=== PATIENT | male | born 1960 | race Caucasian/White ===

== ENCOUNTER → 2016-05-09 | Outpatient (CLI) | payer BC ==
[2016-05-09 12:23] LABS: BASO % 0.4 %; BASO ABS # 0.02 K/uL (0-0.2); COMPLETE YES; EOS % 2.2 %; HEMATOCRIT 43.1 % (42-52); IG% 0.6 %; LYMPH ABS # 0.74 K/uL (1.2-3.4); MEAN CELL VOLUME 86.2 fL (80-100); MEAN CORPUSCULAR HEMOGLOBIN 30.8 pg (25-34); MEAN CORPUSCULAR HGB CONC 35.7 g/dl (32-36); MEAN PLATELET VOLUME 9.4 fL (7.4-10.4); MONO % 10.1 %; NEUT % 71.7 %; PLATELET COUNT 164 K/uL (130-400); WHITE BLOOD COUNT 4.93 K/uL (4.8-10.8)
[2016-05-09 12:51] LABS: ALT/SGPT 42 U/L (12-78); BLOOD UREA NITROGEN 17 mg/dl (7-18); BUN/CREATININE RATIO 17.3 (10-20); CALCIUM 8.6 mg/dl (8.5-10.1); CARBON DIOXIDE 24 mmol/L (21-32); CHLORIDE 107 mmol/L (98-107); CHOLESTEROL 227 mg/dl (0-200); GLUCOSE 101 mg/dl (70-99); POTASSIUM 4.2 mmol/L (3.5-5.1); SODIUM 140 mmol/L (136-145); TRIGLYCERIDES 306 mg/dl (0-150); VERY LOW DENSITY LIPOPROT CALC 61 mg/dl
[2016-05-09 13:01] LABS: ALB/GLOB RATIO 1.4 (0.9-2); ALKALINE PHOSPHATASE 70 U/L (45-117); AST/SGOT 27 U/L (15-37); CHOLESTEROL/HDL RATIO 5.8; HDL CHOLESTEROL 39 mg/dl; LDL CHOLESTEROL CALCULATED 127 mg/dl; PROSTATE SPECIFIC ANTIGEN 0.914 ng/ml (0.000-4.000)
[2016-05-09 13:02] LABS: ESTIMATED AVERAGE GLUCOSE 94 mg/dl; HA1C FLAG Normal (Normal)
== END | disposition home or self-care (01) ==
LOC: C.LABBFT 07:37
PROVIDERS: ATTEND Internal Medicine
DX: R73.01 Impaired fasting glucose (principal); Z12.5 Encounter for screening for malignant neoplasm of prostate

== ENCOUNTER → 2016-05-10 | Outpatient (CLI) | payer BC ==
[2016-05-10 17:58] LABS: THYROID STIMULATING HORMONE 2.52 uIu/ml (0.300-4.500)
== END | disposition home or self-care (01) ==
LOC: C.LABBFT 12:56
PROVIDERS: ATTEND Internal Medicine
DX: E03.9 Hypothyroidism, unspecified (principal)

== ENCOUNTER 2017-04-18 13:55 | Emergency (ER) | payer BC ==
[~2017-04-18] VITALS: Ht 180.3 cm; Wt 97.0 kg
[2017-04-18 13:57] VITALS: TEMP 36.4; Ht 180.3 cm; Wt 97.0 kg
--- NOTE | 2017-04-18 15:16 | DIAGNOSTIC IMAGING REPORT ---
CERVICAL SPINE W/O CT DOSE: 1208.96 mGy.cm HISTORY: Trauma EVAL TRAUMA TECHNIQUE: Multiaxial CT images of the cervical spine were performed and reformatted in the sagittal and coronal plane without the use of contrast. A dose lowering technique was utilized adhering to the principles of ALARA. COMPARISON: None. FINDINGS: No fractures. No subluxation. Prevertebral soft tissues and the C1-C2 interval are intact. No pneumothorax. Moderate disc degenerative disc change C5-C7. Straightening of the cervical curvature consistent muscular spasm. IMPRESSION: No fractures within the cervical spine. Degenerative change. Muscle spasm. The above report was generated using voice recognition software. It may contain grammatical, syntax or spelling errors. Electronically signed by: John Richardson M.D. 04/18/2017 3:15 PM Dictated Date/Time: 04/18/2017 3:13 PM
--- NOTE | 2017-04-18 15:25 | DIAGNOSTIC IMAGING REPORT ---
HEAD WITHOUT CONTRAST (CT) CT DOSE: HISTORY: Trauma. Mental status change. EVAL TRAUMA TECHNIQUE: Multiaxial CT images of the head were performed without the use of intravenous contrast. A dose lowering technique was utilized adhering to the principles of ALARA. Comparison: None. Findings: The paranasal sinuses and mastoid air cells are clear. The calvarium and skull base are intact. The ventricles and sulci are within normal limits. There is no mass, hematoma, midline shift, or acute infarct. Impression: No acute intracranial abnormality. The above report was generated using voice recognition software. It may contain grammatical, syntax or spelling errors. Electronically signed by: John Richardson M.D. 04/18/2017 3:24 PM Dictated Date/Time: 04/18/2017 3:15 PM
--- NOTE | 2017-04-18 15:42 | EMERGENCY ROOM VISIT NOTE ---
ED Visit Note First contact with patient: 14:04 CHIEF COMPLAINT: Head injury yesterday morning HISTORY OF PRESENT ILLNESS: Patient is a healthy 57-year-old white male who presents emergency department for evaluation after he sustained a head injury yesterday morning. He reports he was carrying the recycling bin down his driveway, when he slipped on the snow and ice, falling backwards. He landed on his buttocks first, then his torso went backwards, he hit his back off of the driveway, then his head continued through and bounced off of the driveway as well. He denies loss of consciousness, but reports that he was "on autopilot." He mustn't taken the recycling down to the end of the driveway, then he states that he drove to work, but he does not remember the drive to work. When he got into his office, he reports noticing the discomfort in his head and in the back of his neck and shoulders. He states that there was a little bleeding from the back of his head where he struck it daily. He applied a to his head. He tried to start work at his computer and was having difficulty focusing, primarily with the left eye, therefore drove himself home and rested the remainder of the day. He states that he "just wanted to sleep." He did take some Tylenol for his discomfort. Today he notes a moderate, throbbing generalized headache in addition to pain in the back of his head where he struck it. He reports difficulty focusing, slight nausea and pain in his neck and in his back between his shoulder blades where he hit. He rates his discomfort a 6/10. He denies any numbness, tickling or weakness into the upper extremities. reports that he seems a little bit "slower and methodical," but denies any overt confusion or repetitive questioning. The patient denies any other injuries related to the fall. He is not presently taking any blood thinning medications. He reports a history of a head injuries in his youth, but none that were formally diagnosed. REVIEW OF SYSTEMS: Review of systems as per HPI. All other systems reviewed were negative. 10 systems reviewed. PMH: Electronic medical records are reviewed and summarized as above/below. See Problem List. SOCIAL HISTORY: Patient lives at home with his and children. He is employed. Nonsmoker PHYSICAL EXAM: Vital Signs: Reviewed Nurse's notes. CONSTITUTIONAL: Patient is a pleasant, well-appearing 57-year-old white male who is awake and alert and in no acute distress. GCS: 15 HEENT: Occipital area of ecchymosis and soft tissue swelling, tender to palpation.. Pupils equal, round, reactive to light and accommodation. EOMs intact without nystagmus. Sclera are anicteric. Tympanic membranes intact, with normal landmarks. External canals are clear. No hemotympanum or Mast sign. Oral and nasopharynx are clear. No CSF rhinorrhea. Mucous membranes are moist. NECK: Supple, nontender, no lymphadenopathy. SPINE: There is no pain over the spinous processes of the cervical, thoracic or lumbar spine. He has full cervical spine range of motion. He has some cervical paraspinous muscle tenderness without spasm. He has since discomfort over the spine of the scapula bilaterally,, but skin is intact without ecchymosis or abrasion. HEART: Regular rate and rhythm. LUNGS: Breath sounds equal and clear to auscultation without wheezes, rales, or rhonchi heard. SKIN: No lesions or rash, normal skin turgor. EXTREMITIES: No cyanosis, edema, joint tenderness or swelling. No deformity. NEUROLOGICAL: Alert and oriented x4. Cranial nerves 2 through 12, sensation and strength grossly intact. Gait is normal. Patient is able to toe, heel and tandem walk without difficulty. Negative Romberg, and pronator drift. Finger to nose, finger to finger and rapid alternating movements are intact. Immediate , recent and remote memories are intact. Concentration is normal. ED COURSE: The patient was seen and evaluated as above. Old records were reviewed. He took Tylenol that his had on hand after being examined. Given the mechanism of injury and physical exam findings, I did recommend and discuss performing a head and cervical spine CT. Patient was in agreement to proceed. Head and cervical spine CTs were obtained, and were negative for acute posttraumatic findings. Clinically, the patient has symptoms that are consistent with a concussion. Verbal and written head injury instructions were outlined with the patient at length. Cognitive rest was discussed. He was encouraged to return to the emergency department for worsening symptoms, and can follow-up with his primary care provider if his symptoms persist. Differential diagnoses entertained included skull fracture, cerebral contusion, concussion, acute intracranial bleed, C-spine fracture, unstable ligamentous injury, cervical strain, among others. Medication reconciliation: I attest that I have personally reviewed the patient' s current medication list. Blood pressure screening: Patient was found to have a slightly elevated blood pressure due to circumstances. I do not believe that the patient requires hypertension monitoring. CERVICAL SPINE W/O CT DOSE: 1208.96 mGy.cm HISTORY: Trauma EVAL TRAUMA TECHNIQUE: Multiaxial CT images of the cervical spine were performed and reformatted in the sagittal and coronal plane without the use of contrast. A dose lowering technique was utilized adhering to the principles of ALARA. COMPARISON: None. FINDINGS: No fractures. No subluxation. Prevertebral soft tissues and the C1-C2 interval are intact. No pneumothorax. Moderate disc degenerative disc change C5-C7. Straightening of the cervical curvature consistent muscular spasm. IMPRESSION: No fractures within the cervical spine. Degenerative change. Muscle spasm. HEAD WITHOUT CONTRAST (CT) CT DOSE: HISTORY: Trauma. Mental status change. EVAL TRAUMA TECHNIQUE: Multiaxial CT images of the head were performed without the use of intravenous contrast. A dose lowering technique was utilized adhering to the principles of ALARA. Comparison: None. Findings: The paranasal sinuses and mastoid air cells are clear. The calvarium and skull base are intact. The ventricles and sulci are within normal limits. There is no mass, hematoma, midline shift, or acute infarct. Impression: No acute intracranial abnormality. Current/Historical Medications No Active Prescriptions or Reported Meds Allergies Coded Allergies: No Known Allergies (Verified , 04/18/17) Vital Signs Date Time Temp Pulse Resp B/P (MAP) Pulse Ox O2 Delivery O2 Flow Rate FiO2 04/18/17 15:50 82 20 154/95 94 04/18/17 13:57 36.4 74 18 160/100 96 Departure Information Impression Primary Impression: Concussion Prescriptions No Active Prescriptions or Reported Meds Referrals Srinivasa Varela M.D. (PCP) Patient Instructions My [facility] Additional Instructions CONCUSSION DISCHARGE INSTRUCTIONS: What is a concussion? A concussion is a disturbance in the function of the brain caused by a direct or indirect force to the head. It results in a variety of symptoms like: headache, balance problems, nausea, vomiting, vision problems, hearing problems/ringing, drowsiness, irritability, and/or difficulty concentrating or remembering. A concussion may, or may not involve memory problems or loss of consciousness. Concussion instructions: Stop and stay away from ALL physical activity until you are symptom free from: Headaches Balance problems Feeling "dinged" Poor concentration Drowsy Fatigued Rest and avoid strenuous activities for the next few days. Get 8-10 hours of sleep per night. Limit activities that involve significant concentration and attention during this time to speed your recovery. This includes studying, attending school, playing video games, and heavy reading. Your brain needs to rest. Eat right and eat often. Now is the time to feed your brain. Well balanced diets that avoid high sugar foods, sodas, caffeine, etc. are better for your brain. NO ALCOHOL OR DRUGS! Avoid stimulants like caffeine, red bull, mountain dew, "energy" drinks, etc. Tylenol(acetaminophen) may be used for headaches. Use 1000mg every six hours as needed. Avoid using more than 3000mg in a 24 hour period. Avoid anti-inflammatories such as aspirin, ibuprofen, Alleve, naprosyn, Motrin, or Advil as these can interfere with blood clotting and lead to bleeding within the brain after a traumatic injury. Stepwise return to sports for athletes: You may progress to the next step after 24 hours if you are symptom free. If you experience symptoms, you must return to the previous stage and try again after another 24 hours of rest and being symptom free. Best case scenario is full contact game play in 96 hours from the time of injury. Remember repeat concussions are worse than the first. Time invested in recovery will allow for better performance and less downtime in the future. If you have any questions see your dog trainer or make an appointment to see one of the team physicians. 1) No activity, complete rest. Once all symptoms have resolved, report to the team physician or dog trainer to be cleared to progress to step 2. 2) Start light aerobic exercise, such as walking or stationary cycling, no resistance training permitted. 3) Sport specific exercises. Add light resistance slowly. Go slow to allow your body to readapt. 4) Non-contact full speed practice. 5) Full contact practice and/or game play. FOLLOW UP INSTRUCTIONS: You should have a follow up with your family doctor or team physician in 3-5 days regarding your injury. POST CONCUSSIVE SYNDROME: Occasionally patients can experience a postconcussive syndrome which includes prolonged headaches and memory difficulties. This may occur over the next several days, weeks or rarely, even months. It is important to have a primary care physician follow-up in order to help if the situation develops. Problems could arise over the next 24 to 48 hours. You should not be left alone and MUST go to the hospital immediately if you: -Have a headache that suddenly gets worse. -Are very drowsy or cannot be woken up from sleep. -Can't recognize people or places. -Have repeated vomiting. -Behave unusually, seemed confused, or start acting irritable. -Have a seizure (arms and legs start jerking uncontrollably). -Have weak or numb arms or legs. -Are unsteady on your feet -Experience slurred speech or difficulty speaking.
[2017-04-18 15:50] VITALS: BP 154/95; PULSE 82; O2SAT 94
== END 2017-04-18 15:53 | disposition home or self-care (01) ==
LOC: C.EDB 13:56 → C.EDD 15:53
DX: S06.0X0A Concussion without loss of consciousness, initial encounter (principal); W01.198A Fall on same level from slipping, tripping and stumbling with subsequent striking against other object, initial encounter; Y93.89 Activity, other specified; Y99.8 Other external cause status; Y92.014 Private driveway to single-family (private) house as the place of occurrence of the external cause

== ENCOUNTER 2023-04-03 07:06 | Inpatient (IN) ==
[2023-04-03 07:49] LABS: Basophils # (auto) 0.02 K/uL (0.00-0.20); Basophils % (auto) 0.4 %; Eosinophils # (auto) 0.04 K/uL (0.00-0.50); Eosinophils % (auto) 0.8 %; Hematocrit (blood only) 45.8 % (42.0-52.0); Hemoglobin 15.7 g/dl (14.0-18.0); Immature Granulocytes # (auto) 0.02 K/uL (0.01-0.20); Immature Granulocytes % (auto) 0.4 %; Lymphocytes # (auto) 0.71 K/uL (1.20-3.40); Lymphocytes % (auto) 14.2 %; Mean Corpuscular Hemoglobin 29.9 pg (25.0-34.0); Mean Corpuscular Hgb Conc 34.3 g/dL (32.0-36.0); Mean Corpuscular Volume 87.2 fL (80.0-100.0); Mean Platelet Volume 8.9 fL (9.4-12.4); Monocytes # (auto) 0.67 K/uL (0.11-0.59); Monocytes % (auto) 13.4 %; Neutrophils # (auto) 3.54 K/uL (1.40-6.50); Neutrophils % (auto) 70.8 %; Platelet Count 142 K/uL (130-400); RDW Coefficient of Variation 12.7 % (11.5-14.5); RDW Standard Deviation 40.1 fL (36.4-46.3); Red Blood Count 5.25 M/uL (4.70-6.10)
[2023-04-03] MEDS ORDERED: KETOROLAC TROMETHAMINE 15 MG/ML VIAL IV ONE ×2 (07:49→21:14)
[2023-04-03] MEDS ORDERED: ONDANSETRON INJ 2 MG/ML 2 ML VIAL IV STA (07:49)
[2023-04-03] MEDS: HYDROmorphone INJ 0.5 MG/0.5 ML SYR IV PRN ×4 (07:58→23:02)
[2023-04-03 08:00] LABS: Albumin Globulin Ratio 1.7 (0.9-2); Albumin Level 4.2 gm/dl (3.4-5.0); BUN Creatinine Ratio 14.7 (10-20); Bilirubin,Total 1.1 mg/dl (0.2-1.0); Calcium 8.7 mg/dl (8.6-10.3); Creatinine Clr Calc Pharmacy 65.6 ml/min; Est GFR (African American) 76.2 ml/min; Est GFR (Non-African American) 65.7 ml/min; Globulin 2.5 gm/dl (2.5-4.0); Potassium 3.9 mmol/L (3.5-5.1); Total Protein 6.7 gm/dl (6.0-8.3)
[2023-04-03] MEDS ORDERED: SODIUM CHLORIDE 0.9% 1,000 ML IV SCH (08:00)
--- NOTE | 2023-04-03 08:30 | CT Scan Report ---
CT SCAN OF THE ABDOMEN AND PELVIS WITHOUT IV CONTRAST CLINICAL HISTORY: Left sided abdominal pain/flank pain. COMPARISON STUDY: Lumbar spine radiographs dated 09/28/2021. TECHNIQUE: CT scan of the abdomen and pelvis is performed from the lung bases to the proximal femora. Images are reviewed in the axial, sagittal, and coronal planes. IV contrast was not administered for this examination. A dose lowering technique was utilized adhering to the principles of ALARA. CT DOSE: 1299.14 mGy.cm FINDINGS: Lung bases: The heart is mildly enlarged and without pericardial effusion. The coronary arteries are densely calcified. The lung bases are clear noting dependent atelectasis. There is a small hiatal her marybeth. Liver: The unenhanced liver is normal in size, contour, and attenuation. There is no intrahepatic sharmila iary ductal dilatation. Gallbladder: Unremarkable. Spleen: Normal in size and attenuation. Pancreas: Unremarkable. Adrenal glands: Unremarkable. Kidneys: The unenhanced kidneys are normal in size. There is an 8 mm obstructing calculus in the left proximal ureter seen on image #201. This causes mild left hydroureteronephrosis. There is left-sided perinephric and periureteric stranding/fluid. No additional calculi are identified in either kidney. There is no right ureteral stones or right-sided hydronephrosis. There is no evidence of contour def orming renal mass lesion. Abdominal vasculature: The abdominal aorta is normal in course and caliber noting mild to moderate at herosclerotic calcification. Bowel: There are scattered colonic diverticula without CT evidence of acute diverticulitis. No bowel obstruction is seen. The appendix is well-visualized and normal. Peritoneum: There is no intraperitoneal free air or abdominal ascites. There is a fat-containing umbi lical hernia. Lymphadenopathy: None. Pelvic viscera: The prostate gland is mildly enlarged and heterogeneous. The bladder is normal as vis ualized. Skeletal structures: There is mild lumbosacral spondylosis. No lytic or blastic lesions are seen. IMPRESSION: 1. There is an 8 mm obstructing calculus in the left proximal ureter. This causes mild left hydrouret eronephrosis. 2. No additional calculi are identified in either kidney. 3. Mild cardiomegaly with advanced coronary artery calcification. Consider nonemergent follow up with cardiology. 4. Mild colonic diverticulosis without CT evidence of acute diverticulitis. 5. Additional findings as above. ACT 112: Negative or not required by law. Electronically signed by: Ovidio Perry M.D. 04/03/2023 8:28 AM
[2023-04-03 10:04] LABS: Appearance Urine Clear (Clear); Bacteria Urine Automated Negative (Negative); Bilirubin Urine Negative (Negative); Blood Urine 1+ (Negative); Color Urine Yellow; Glucose Urine UA Trace (Negative); Ketones Urine 2+ (Negative); Leukocyte Esterase Urine Negative (Negative); Nitrite Urine Negative (Negative); Protein Urine Negative (Negative); RBC Urine Automated 0-4 /hpf (0-4); Specific Gravity Urine 1.016 (1.000-1.030); Urobilinogen Urine Negative (Negative); pH Urine 6.5 (4.5-7.5)
--- NOTE | 2023-04-03 11:29 | History & Physical Report ---
Date of Service April 03, 2023 Assessment & Plan (1) Nephrolithiasis: (2) Intractable abdominal pain: Plan: -Admit to MedSurg -Continue IV with NSS 125 ml/hr for hydration -Consult urology, Dr. Dawson for possible procedure/stent placement -- unlikely with positive covid that this will be done unless it is an emergency procedure -Pain control with IV Dilaudid, Flomax, bowel regimen, strain all urine -No leukocytosis, afebrile currently-no blood cultures were obtained initially so will order now with covid positive -Allow diet per urology, they will make NPO after midnight if their team warrants emergent procedure tomorrow (3) Coronary artery calcification: Plan: - Noted on imaging , pt should have follow up with cardiology, nonemergent (4) COVID-19: Plan: - Covid positive on swab - Pt symptoms have been going on for several days, reports was tested positive last week with COVID. - afebrile here. Pt admits to possible fever/chills last night -- has told urology 3 days of fevers. - Continue on NC and wean as tolerated. he is on 4 L nc currently and has 84% on RA upon arrival here. Does not require supplemental o2 at baseline. - Started guaifenesin po, albuterol nebs Q4H and Q2H prn, incentive spirometry, flutter and decadron IV - Obtain stat CXR now - Consider CT chest pending clinical improvement (5) Diverticulosis: Plan: - Noted on imaging, hx of colonoscopy - Chronic, stable, no acute flare DVT ppx: Teds Lines: 2 PIV FEN/GI: NSS at 125 mL/hr, n.p.o., CODE STATUS: Full code History of Present Illness Chief Complaint: Abdominal/flank pain Primary Care Provider: Broderick Kwok MD This is a 63-year-old male without significant past medical history who presents to the hospital with acute left-sided abdominal and flank pain. Patient states that this woke him from sleep around 4 AM today, pain has been nearly constant in nature. Yesterday he was doing well in his normal state of health was eating and drinking fine. He admits to some nausea with dry heaves which has improved since having Zofran in the ER. His is present with him at bedside and supports the history. She reports that she had COVID recently and that the patient also had flu like symptoms about a week ago, but that the symptoms are resolved. CT abdomen and pelvis shows a 8 mm obstructing kidney stone in the left ureter causing mild left-sided hydronephrosis. After multiple doses of IV Dilaudid and fluids patient's pain was unable to be controlled. Urology has been consulted by the ER and recommends intervention so he will be admitted. Allergies Allergy/AdvReac Type Severity Reaction Status Date / Time No Known Allergies Allergy Verified 10/04/17 02:14 Home Medications Medication Instructions Recorded Confirmed Type No Known Home Medications 04/03/23 04/03/23 History Past Med/Surg History Medical History No significant medical problems Surgical History H/O nasal septoplasty History of hydrocelectomy Hx of colonoscopy Family History Mother Alzheimer disease Father Breast cancer Brother Cancer Lung cancer Social History Smoking Status: Never smoker Hx Alcohol Use: No Hx Substance Use: No Preferred Language: Lithuanian Feels Safe at Home: Yes Review of Systems Review of Systems: Constitutional: No fever + chills, sweats Eyes: No diplopia, no worsening or blurred vision ENT: normal hearing, no trouble swallowing Respiratory: No cough, sputum, dyspnea at rest or on exertion Cardiovascular: No chest pain, tightness or palpitations Abdomen: As per HPI with left-sided lower abdominal pain, + nausea, + dry heaves, no vomiting, no diarrhea or constipation, urine is clear yellow Musculoskeletal: No joint pain, calf pain, swelling Neurologic: No weakness, numbness/tingling, or balance problems Psychiatric: No anxiety or depression Skin: No rash or itch Physical Exam Physical Exam: General: awake, alert, no apparent distress, white male Head: Normocephalic, atraumatic ENT: PERRL, EOMI, no pharyngeal exudate, mucous membranes moist Chest: Clear to auscultation, on 4 L via NC with sats at 96%, no adventitious breath sounds Cardiac: Regular rate and rhythm, no murmur, no JVD, normal peripheral pulses, good capillary refill Abdominal: Hypoactive BS x 4 quadrants, soft, + tenderness in LLQ, nondistended,no rebound or guarding, patient is pain is significant and unable to sit up significant and unable to sit up for exam, CVA tenderness cannot be assessed., Extremities: Normal inspection, no peripheral edema or erythema, calfs nontender to palpation Psych: Normal mood and affect Neuro: AAO x 3, strength intact bilaterally and rated 5/5, no motor deficits, speech is clear, no peripheral sensory deficits Results & Data Results & Data Vital Signs (Past 12 Hours) Vital Signs Temp Pulse Resp BP Pulse Ox O2 Del Method O2 Flow Rate 04/03/23 08:44 63 16 95 Nasal Cannula 4 04/03/23 08:30 59 L 18 156/85 H 97 Nasal Cannula 4 04/03/23 08:16 60 04/03/23 08:15 60 14 166/86 H 84 L Room Air 04/03/23 08:00 52 L 14 204/95 H 96 Room Air 04/03/23 07:45 53 L 14 210/104 H 100 Room Air 04/03/23 07:30 54 L 14 213/106 H 100 Room Air 04/03/23 07:26 53 L 16 233/104 H 99 Room Air 04/03/23 07:07 36.6 C 57 L 18 208/102 H 100 Laboratory Results 04/03/23 04/03/23 09:38 07:26 WBC 5.00 RBC 5.25 Hgb 15.7 Hct 45.8 MCV 87.2 MCH 29.9 MCHC 34.3 RDW Std Deviation 40.1 RDW Coeff of Adelfo 12.7 Plt Count 142 MPV 8.9 L Immature Gran % (Auto) 0.4 Neut % (Auto) 70.8 Lymph % (Auto) 14.2 [place] % (Auto) 13.4 Eos % (Auto) 0.8 Baso % (Auto) 0.4 Neut # (Auto) 3.54 Lymph # (Auto) 0.71 L [place] # (Auto) 0.67 H Eos # (Auto) 0.04 Baso # (Auto) 0.02 Immature Gran # (Auto) 0.02 Sodium 137 Potassium 3.9 Chloride 104 Carbon Dioxide 24 Anion Gap 9 BUN 17 Creatinine 1.16 Est Cr Clr Drug Dosing 65.6 Est GFR ( Amer) 76.2 Est GFR (Non-Af Amer) 65.7 BUN/Creatinine Ratio 14.7 Glucose 144 H Calcium 8.7 Total Bilirubin 1.1 H AST 20 ALT 19 Alkaline Phosphatase 67 Total Protein 6.7 Albumin 4.2 Globulin 2.5 Albumin/Globulin Ratio 1.7 Lipase 13 Urine Color Yellow Urine Appearance Clear Urine pH 6.5 Ur Specific [place] 1.016 Urine Protein Negative Urine Glucose (UA) Trace H Urine Ketones 2+ H Urine Blood 1+ H Urine Nitrite Negative Urine Bilirubin Negative Urine Urobilinogen Negative Ur Leukocyte Esterase Negative Urine WBC (Auto) 1-5 Urine RBC (Auto) 0-4 U Hyaline Cast (Auto) 1-5 U Epithel Cells (Auto) 10-20 H Urine Bacteria (Auto) Negative Diagnostic Findings Abdomen/Pelvis CT 04/03/23 07:49 CT SCAN OF THE ABDOMEN AND PELVIS WITHOUT IV CONTRAST CLINICAL HISTORY: Left sided abdominal pain/flank pain. COMPARISON STUDY: Lumbar spine radiographs dated 09/28/2021. TECHNIQUE: CT scan of the abdomen and pelvis is performed from the lung bases to the proximal femora. Images are reviewed in the axial, sagittal, and coronal planes. IV contrast was not administered for this examination. A dose lowering technique was utilized adhering to the principles of ALARA. CT DOSE: 1299.14 mGy.cm FINDINGS: Lung bases: The heart is mildly enlarged and without pericardial effusion. The coronary arteries are densely calcified. The lung bases are clear noting dependent atelectasis. There is a small hiatal hernia. Liver: The unenhanced liver is normal in size, contour, and attenuation. There is no intrahepatic biliary ductal dilatation. Gallbladder: Unremarkable. Spleen: Normal in size and attenuation. Pancreas: Unremarkable. Adrenal glands: Unremarkable. Kidneys: The unenhanced kidneys are normal in size. There is an 8 mm obstructing calculus in the left proximal ureter seen on image #201. This causes mild left hydroureteronephrosis. There is left-sided perinephric and periureteric stranding/fluid. No additional calculi are identified in either kidney. There is no right ureteral stones or right-sided hydronephrosis. There is no evidence of contour deforming renal mass lesion. Abdominal vasculature: The abdominal aorta is normal in course and caliber noting mild to moderate atherosclerotic calcification. Bowel: There are scattered colonic diverticula without CT evidence of acute diverticulitis. No bowel obstruction is seen. The appendix is well-visualized and normal. Peritoneum: There is no intraperitoneal free air or abdominal ascites. There is a fat-containing umbilical hernia. Lymphadenopathy: None. Pelvic viscera: The prostate gland is mildly enlarged and heterogeneous. The bladder is normal as visualized. Skeletal structures: There is mild lumbosacral spondylosis. No lytic or blastic lesions are seen. IMPRESSION: 1. There is an 8 mm obstructing calculus in the left proximal ureter. This causes mild left hydroureteronephrosis. 2. No additional calculi are identified in either kidney. 3. Mild cardiomegaly with advanced coronary artery calcification. Consider nonemergent follow up with cardiology. 4. Mild colonic diverticulosis without CT evidence of acute diverticulitis. 5. Additional findings as above. ACT 112: Negative or not required by law. Electronically signed by: Ovidio Perry M.D. 04/03/2023 8:28 AM Code Status & VTE Plan Code Status Full code Supervising Physician Co-Signing Physician Notes Attending Addendum: care coordinated with RICHAR Val Edwards please refer to her notes for full details, I agree with her notes patient seen and examined, records reviewed by myself as well on exam, patient seen resting in bed, not in distress States left flank pain is 4 out of 10 No hematuria, dysuria No active shortness of breath, chest pain, palpitations, dizziness no other symptoms VS noted and reviewed oriented x 3, not in distress, speaks in sentences with no effort nor accessory muscle use normal rate, regular rhythm, no murmurs clear breath sounds bilaterally non distended, soft, nontender no bipedal edema, erythema, warmth no neuro deficits All labs noted and reviewed ASSESSMENT AND PLAN Left ureteral stone, 8 mm, with left hydronephrosis Renal function is good Urologist consulted-n.p.o. postmidnight, reevaluate for possible procedure Continue IV NSS, tamsulosin, pain control with as needed Dilaudid, Toradol, scheduled Ofirmev COVID-19 infection Noted to have an episode of hypoxia less than 90% while at the ER Chest x-ray: No pneumonia Remdesivir, Decadron Nebs Mucinex Lovenox or heparin for DVT prophylaxis plan no procedures planned Hypertensive urgency Likely secondary to ongoing pain Amlodipine 5 mg p.o. daily Hydralazine as needed Coronary artery calcifications Incidental findings on CT Will need to be on aspirin Outpatient cardiology follow other diagnoses and plan of care as per RICHAR Val Gamboa MD
[2023-04-03 12:49] LABS: Influenza A virus by PCR Negative (Neg); Influenza B virus by PCR Negative (Neg); RSV by PCR Negative (Neg)
--- NOTE | 2023-04-03 12:55 | Emergency Department Note ---
Impression & Plan Intractable abdominal pain, Ureterolithiasis ED Provider Note NAME: ANT WILSON AGE: 63 SEX: Male INFORMANT: Patient ED PROVIDER(S): Poncho Floyd MD CHIEF COMPLAINT: Abdominal pain PLAN: Disposition: Admitted Outpatient prescription management: none Referral: None MEDICAL DECISION MAKING: Patient presented because of severe abdominal pain. He was quite uncomfortable. IV was established. He was treated with IV Dilaudid, Toradol, and Zofran. Blood work and imaging ordered. Patient had unremarkable blood work except he was found to have a very large proximal left ureteral stone. Patient required multiple doses of IV Dilaudid and was still uncomfortable. Patient requested admission due to pain. I did consult with Dr. Dawson of urology. Initial plan was for pain control and possible outpatient follow-up tomorrow however since the patient is quite uncomfortable he will need further management in the hospital. [facility]. Patient was evaluated in the ER and admitted for further management. Care/management discussed with: application services manager Level of care consideration(s): Initial consideration was for pain control and outpatient follow-up tomorrow, however after review of the information above and other included data, I feel the patient requires escalation of care to admission. Triage Nursing notes: reviewed and agree them. Vital Signs: reviewed and remarkable for hypertension Additional History obtained from: none Chronic Medical/Social Conditions affecting care: none Prior/ Outside/ External records reviewed: none Differential Diagnosis: Renal colic, UTI, appendicitis, diverticulitis, mesenteric ischemia, aortic pathology, infections, inflammatory bowel disease, PUD, biliary pathology, as well as other pathologies. Diagnostics, independently interpreted by me: ECG: none Cardiac Monitoring: Cardiac monitoring ordered by me: The patient was placed on continuous cardiac monitoring and observed. It revealed a normal sinus rhythm at 61 beats per minute without ectopy or evidence of dysrhythmia. Medical decision rules: none Imaging studies: CT scan reveals left-sided ureterolithiasis. 8 mm. I refer you to the EMR for further details. HPI: 63 year old Male arrives for evaluation of left-sided abdominal pain. This started acutely this morning. Patient notes pain is a 10 out of 10. No relieving factors noted. Patient did have nausea and vomiting. No prior history of the same. Pt denies LOC, headache, fevers, chills, diaphoresis, visual changes, neck pain, chest pain, breathing difficulties, back pain, melena, hematochezia, urinary symptoms, numbness, weakness, lymphadenopathy, rash, or other complaints.. PAST MEDICAL HISTORY: See Below, PAST SURGICAL HISTORY: See Below, hydrocele SOCIAL HISTORY: See Below, HOME MEDICATIONS: See Below ALLERGIES: See Below VITALS: See Below PHYSICAL EXAMINATION: GENERAL: Awake, alert, uncomfortable-appearing, in no moderate distress HENT: Normocephalic, atraumatic. Oropharynx unremarkable. EYES: Normal conjunctiva. Sclera non-icteric. NECK: Inspection normal. Non-tender. Supple. No nuchal rigidity. FROM. No masses. RESPIRATORY: Clear to auscultation. No wheezes. No rales. Normal respiratory effort. CARDIAC: Normal rate. Normal rhythm. No murmurs. No rubs. Extremities warm and well perfused. Pulses equal. No JVD. GI: Soft, non-distended. Left lower tenderness to palpation. No rebound or guarding. No masses. RECTAL: Deferred. MUSCULOSKELETAL: Atraumatic. Chest examination reveals no tenderness. The back is symmetrical on inspection without obvious abnormality. There is no CVA tenderness to palpation. No joint edema. LOWER EXTREMITIES: Calves are equal size bilaterally and non-tender. No edema. No discoloration. NEURO: Normal sensorium. No sensory or motor deficits noted. SKIN: No rash or jaundice noted. PROCEDURES: none CRITICAL CARE: none OBSERVATION NOTE: none Past Med/Surg History Medical History No significant medical problems Surgical History (Updated 04/03/23 @ 11:33 by Libertad Heck PA-C) H/O nasal septoplasty History of hydrocelectomy Hx of colonoscopy Family History (Updated 04/03/23 @ 11:33 by Libertad Heck PA-C) Mother Alzheimer disease Father Breast cancer Brother Cancer Lung cancer Social History (Updated 04/03/23 @ 11:33 by Libertad Heck PA-C) Smoking Status: Never smoker Hx Alcohol Use: No Hx Substance Use: No Preferred Language: Afghan Feels Safe at Home: Yes Allergies Allergies Allergy/AdvReac Type Severity Reaction Status Date / Time No Known Allergies Allergy Verified 10/04/17 02:14 Home Meds Home Medications Medication Instructions Recorded Confirmed No Known Home Medications 04/03/23 04/03/23 Results & Data (ED) Vital Signs Vital Signs - 24 hr 04/03/23 07:07 04/03/23 07:26 04/03/23 07:30 Temperature 36.6 C Temperature Source Temporal Artery Scan Pulse Rate 57 L 53 L 54 L Pulse Rate from SpO2 Sensor 53 L 55 L Pulse Rhythm Respiratory Rate 18 16 14 Blood Pressure 208/102 H 233/104 H 213/106 H Blood Pressure Mean 137 147 141 Pulse Oximetry 100 99 100 Oxygen Delivery Method Room Air Room Air Oxygen Flow Rate Sepsis Recent Fever Within 48 Hours No Sepsis New/Unexplained Change in Mental Status N/A Sepsis Action Taken by Nursing No Action Required 04/03/23 07:45 04/03/23 08:00 04/03/23 08:15 Temperature Temperature Source Pulse Rate 53 L 52 L 60 Pulse Rate from SpO2 Sensor 53 L 52 L 61 Pulse Rhythm Respiratory Rate 14 14 14 Blood Pressure 210/104 H 204/95 H 166/86 H Blood Pressure Mean 139 131 112 Pulse Oximetry 100 96 84 L Oxygen Delivery Method Room Air Room Air Room Air Oxygen Flow Rate Sepsis Recent Fever Within 48 Hours Sepsis New/Unexplained Change in Mental Status Sepsis Action Taken by Nursing 04/03/23 08:16 04/03/23 08:30 04/03/23 08:44 Temperature Temperature Source Pulse Rate 60 59 L 63 Pulse Rate from SpO2 Sensor 61 Pulse Rhythm Regular Respiratory Rate 18 16 Blood Pressure 156/85 H Blood Pressure Mean 108 Pulse Oximetry 97 95 Oxygen Delivery Method Nasal Cannula Nasal Cannula Oxygen Flow Rate 4 4 Sepsis Recent Fever Within 48 Hours Sepsis New/Unexplained Change in Mental Status Sepsis Action Taken by Nursing 04/03/23 12:24 Temperature Temperature Source Pulse Rate 57 L Pulse Rate from SpO2 Sensor Pulse Rhythm Respiratory Rate Blood Pressure Blood Pressure Mean Pulse Oximetry Oxygen Delivery Method Oxygen Flow Rate Sepsis Recent Fever Within 48 Hours Sepsis New/Unexplained Change in Mental Status Sepsis Action Taken by Nursing Laboratory Data 04/03/23 07:26 04/03/23 07:26 Lab Results 04/03/23 04/03/23 Range/Units 07:26 09:38 WBC 5.00 (4.8-10.8) K/ul RBC 5.25 (4.70-6.10) M/uL Hgb 15.7 (14.0-18.0) g/dl Hct 45.8 (42.0-52.0) % MCV 87.2 (80.0-100.0) fL MCH 29.9 (25.0-34.0) pg MCHC 34.3 (32.0-36.0) g/dL RDW Std Deviation 40.1 (36.4-46.3) fL RDW Coeff of Adelfo 12.7 (11.5-14.5) % Plt Count 142 (130-400) K/uL MPV 8.9 L (9.4-12.4) fL Immature Gran % (Auto) 0.4 % Neut % (Auto) 70.8 % Lymph % (Auto) 14.2 % [place] % (Auto) 13.4 % Eos % (Auto) 0.8 % Baso % (Auto) 0.4 % Neut # (Auto) 3.54 (1.40-6.50) K/uL Lymph # (Auto) 0.71 L (1.20-3.40) K/uL [place] # (Auto) 0.67 H (0.11-0.59) K/uL Eos # (Auto) 0.04 (0.00-0.50) K/uL Baso # (Auto) 0.02 (0.00-0.20) K/uL Immature Gran # (Auto) 0.02 (0.01-0.20) K/uL Sodium 137 (136-145) mmol/L Potassium 3.9 (3.5-5.1) mmol/L Chloride 104 (98-107) mmol/L Carbon Dioxide 24 (21-32) mmol/L Anion Gap 9 (3-11) BUN 17 (6-23) mg/dl Creatinine 1.16 (0.6-1.4) mg/dl Est Cr Clr Drug Dosing 65.6 ml/min Est GFR ( Amer) 76.2 ml/min Est GFR (Non-Af Amer) 65.7 ml/min BUN/Creatinine Ratio 14.7 (10-20) Glucose 144 H (70-99(Fasting)) mg/dl Calcium 8.7 (8.6-10.3) mg/dl Total Bilirubin 1.1 H (0.2-1.0) mg/dl AST 20 (13-39) U/L ALT 19 (7-52) U/L Alkaline Phosphatase 67 (34-104) U/L Total Protein 6.7 (6.0-8.3) gm/dl Albumin 4.2 (3.4-5.0) gm/dl Globulin 2.5 (2.5-4.0) gm/dl Albumin/Globulin Ratio 1.7 (0.9-2) Lipase 13 (11-82) U/L Urine Color Yellow Urine Appearance Clear (Clear) Urine pH 6.5 (4.5-7.5) Ur Specific [place] 1.016 (1.000-1.030) Urine Protein Negative (Negative) Urine Glucose (UA) Trace H (Negative) Urine Ketones 2+ H (Negative) Urine Blood 1+ H (Negative) Urine Nitrite Negative (Negative) Urine Bilirubin Negative (Negative) Urine Urobilinogen Negative (Negative) Ur Leukocyte Esterase Negative (Negative) Urine WBC (Auto) 1-5 (0-5) /hpf Urine RBC (Auto) 0-4 (0-4) /hpf U Hyaline Cast (Auto) 1-5 (0-5) /lpf U Epithel Cells (Auto) 10-20 H (0-5) /lpf Urine Bacteria (Auto) Negative (Negative) Administered Medications Hydromorphone HCl (Hydromorphone Inj 0.5 Mg/0.5 Ml Syr) 0.5 mg IV Q15M PRN PRN Reason: Pain Stop: 04/17/23 07:48 Last Admin: 04/03/23 10:37 Dose: 0.5 mg Documented By: Admin: 04/03/23 07:58 Dose: 0.5 mg Documented By: RENY Sodium Chloride (Nss) 1,000 mls @ 125 mls/hr IV .Q8H LIBRADO Stop: 05/03/23 07:59 Last Admin: 04/03/23 07:57 Dose: 125 mls/hr Documented By: RENY Discontinued Medications Ketorolac Tromethamine (Ketorolac Tromethamine 15 Mg/Ml Vial) 10 mg IV NOW ONE Stop: 04/03/23 07:50 Last Admin: 04/03/23 07:57 Dose: 10 mg Documented By: RENY Ondansetron HCl (Ondansetron Inj 2 Mg/Ml 2 Ml Vial) 4 mg IV NOW STA Stop: 04/03/23 07:50 Last Admin: 04/03/23 07:57 Dose: 4 mg Documented By: RENY Imaging Data Radiologist's Impression: Abdomen/Pelvis CT 04/03/23 07:49 CT SCAN OF THE ABDOMEN AND PELVIS WITHOUT IV CONTRAST CLINICAL HISTORY: Left sided abdominal pain/flank pain. COMPARISON STUDY: Lumbar spine radiographs dated 09/28/2021. TECHNIQUE: CT scan of the abdomen and pelvis is performed from the lung bases to the proximal femora. Images are reviewed in the axial, sagittal, and coronal planes. IV contrast was not administered for this examination. A dose lowering technique was utilized adhering to the principles of ALARA. CT DOSE: 1299.14 mGy.cm FINDINGS: Lung bases: The heart is mildly enlarged and without pericardial effusion. The coronary arteries are densely calcified. The lung bases are clear noting dependent atelectasis. There is a small hiatal hernia. Liver: The unenhanced liver is normal in size, contour, and attenuation. There is no intrahepatic biliary ductal dilatation. Gallbladder: Unremarkable. Spleen: Normal in size and attenuation. Pancreas: Unremarkable. Adrenal glands: Unremarkable. Kidneys: The unenhanced kidneys are normal in size. There is an 8 mm obstructing calculus in the left proximal ureter seen on image #201. This causes mild left hydroureteronephrosis. There is left-sided perinephric and periureteric stranding/fluid. No additional calculi are identified in either kidney. There is no right ureteral stones or right-sided hydronephrosis. There is no evidence of contour deforming renal mass lesion. Abdominal vasculature: The abdominal aorta is normal in course and caliber noting mild to moderate atherosclerotic calcification. Bowel: There are scattered colonic diverticula without CT evidence of acute diverticulitis. No bowel obstruction is seen. The appendix is well-visualized and normal. Peritoneum: There is no intraperitoneal free air or abdominal ascites. There is a fat-containing umbilical hernia. Lymphadenopathy: None. Pelvic viscera: The prostate gland is mildly enlarged and heterogeneous. The bladder is normal as visualized. Skeletal structures: There is mild lumbosacral spondylosis. No lytic or blastic lesions are seen. IMPRESSION: 1. There is an 8 mm obstructing calculus in the left proximal ureter. This causes mild left hydroureteronephrosis. 2. No additional calculi are identified in either kidney. 3. Mild cardiomegaly with advanced coronary artery calcification. Consider nonemergent follow up with cardiology. 4. Mild colonic diverticulosis without CT evidence of acute diverticulitis. 5. Additional findings as above. ACT 112: Negative or not required by law. Electronically signed by: Ovidio Perry M.D. 04/03/2023 8:28 AM Discharge Plan Visit Data Chief Complaint: Abdominal Pain Stated Complaint: SHARP PAIN LEFT SIDE OF STOMACH ED Provider: Poncho Floyd Discharge Problem: Intractable abdominal pain, Ureterolithiasis Forms Stand Alone Forms: [facility] [employer] Prescriptions Prescriptions: No Action No Known Home Medications Referrals Referrals: Broderick Kwok MD [Primary Care Provider] -
[2023-04-03 13:02] LABS: SARS CoV2 RNA(COVID-19) Ceph POSITIVE (Negative)
[2023-04-03] MEDS ORDERED: hydrALAZINE HCL 20 MG/ML VIAL IV PRN (13:42)
[2023-04-03] MEDS: TAMSULOSIN HCL 0.4 MG CAP PO SCH (14:33)
[2023-04-03] MEDS: SODIUM CHLORIDE 0.9% 1,000 ML IV SCH ×2 (14:33→21:16)
[2023-04-03] MEDS ORDERED: SODIUM CHLORIDE 0.65% NA SOLN 45 ML (OCEAN) PRN (14:41)
--- NOTE | 2023-04-03 14:48 | Urology Consultation ---
Date of Consultation April 03, 2023 Assessment & Plan (1) Ureterolithiasis: (2) COVID-19: 63 yo M admitted for intractable pain secondary to an obstructing left proximal ureteral stone with mild hydroureteronephrosis. Patient afebrile Labsnormal creatinine, no leukocytosis Urinalysis is not suggestive of infection CT imaging reviewed and discussednotable for an obstructing 8 mm left proximal ureter stone with mild left hydronephrosis Discussed options for stone management including left ureteral stent placement while inpatient vs outpatient surgical options including ESWL or ureteroscopy and laser lithotripsy and stent placement Patient is COVID positive and was symptomatic within the last few days No plan for surgical intervention today We discussed recovering from COVID prior to surgical intervention unless emergent indication arises For now, continue with supportive care, prn analgesia, prn antiemetics, and medical management per hospital medicine service Will make NPO at midnight to reassess in the morning will follow History of Present Illness Attending Physician: Karan Gamboa MD History of Present Illness This is a 63-year-old male who presented to the emergency department today for evaluation of severe abdominal pain that started acutely this morning. On arrival, he was afebrile, hypertensive, but otherwise hemodynamically stable. CT A/P without contrast independently reviewed and notable for an obstructing 8 mm calculus in the left proximal ureter with mild left hydroureteronephrosis; no additional calculi identified bilaterally. Lab work showed normal creatinine of 1.16, WBC 5.0, hemoglobin 15.7. Urinalysis showed trace glucose, 2+ ketones, 1+ blood, 10-20 epithelial cells, otherwise negative for bacteria, nitrates, or leukocytes. Of note, his COVID testing was positive. He was treated with IV fluids, hydromorphone, ketorolac and ondansetron in the emergency department. He was admitted to the hospital medicine service for pain management. Patient seen and examined in the emergency department. He is resting in litter, no acute distress. He reports left sided abdominal discomfort at present. No flank pain. Reports pain is improved since arrival. He is voiding spontaneously without difficulty, no dysuria or hematuria. Occasional nausea, no vomiting. He reports ill-feelings for the last few days with fever/chills, but these symptoms are better today. Reports his recently had COVID. No prior history of stones. No family history of stones. Allergies Allergy/AdvReac Type Severity Reaction Status Date / Time No Known Allergies Allergy Verified 10/04/17 02:14 Home Medications Medication Instructions Recorded Confirmed Type No Known Home Medications 04/03/23 04/03/23 History Patient History Medical History No significant medical problems Surgical History H/O nasal septoplasty History of hydrocelectomy Hx of colonoscopy Family History Mother Alzheimer disease Father Breast cancer Brother Cancer Lung cancer Social History Smoking Status: Never smoker Hx Alcohol Use: No Hx Substance Use: No Preferred Language: Moldovan Feels Safe at Home: Yes Review of Systems Review of Systems: All systems reviewed & are unremarkable except as noted in HPI & below Physical Exam Physical Exam: General: No acute distress HEENT: Normocephalic Pulmonary: Nonlabored respirations, supplemental oxygen in place Abdomen: Nondistended, soft, mild tenderness to palpation over the left abdomen Extremities: Moves all 4 spontaneously Neuro: No gross deficits Psych: alert and oriented, normal mood Skin: Warm, dry, no rashes noted : no CVA tenderness Results & Data Vital Signs (Past 12 Hours) Vital Signs Temp Pulse Resp BP Pulse Ox O2 Del Method O2 Flow Rate 04/03/23 12:24 57 L 04/03/23 08:44 63 16 95 Nasal Cannula 4 04/03/23 08:30 59 L 18 156/85 H 97 Nasal Cannula 4 04/03/23 08:16 60 04/03/23 08:15 60 14 166/86 H 84 L Room Air 04/03/23 08:00 52 L 14 204/95 H 96 Room Air 04/03/23 07:45 53 L 14 210/104 H 100 Room Air 04/03/23 07:30 54 L 14 213/106 H 100 Room Air 04/03/23 07:26 53 L 16 233/104 H 99 Room Air 04/03/23 07:07 36.6 C 57 L 18 208/102 H 100 PG Care Time/CCT Total # of Minutes Spent Total Time Spent with Patient: Total time spent is greater than 50% in coordination of care (as documented) at patient's floor/unit and/or counseling patient: Coding Level of Care Code 81423 IN/OBS CONSULT LVL 4,60M Diagnoses Ureterolithiasis N20.1 COVID-19 U07.1
[2023-04-03] MEDS ORDERED: REMDESIVIR 200 MG in SODIUM CHLORIDE 0.9% 210 ML IV ONE (15:00)
[2023-04-03] MEDS: ALBUT/IPRATROP 3MG/0.5MG NEB 3 ML VIAL NEB SCH ×2 (15:15→20:25)
--- NOTE | 2023-04-03 15:42 | XRay Report ---
XR chest 1V portable CLINICAL HISTORY: Covid + COMPARISON STUDY: No previous studies for comparison. FINDINGS: Lung volumes are normal. Lungs are clear. There is no pneumothorax or pleural effusion. Mil d cardiomegaly. Mediastinal contours are normal. There is no evidence for pulmonary edema. IMPRESSION: No acute cardiopulmonary findings. ACT 112: Negative or not required by law. Electronically signed by: Solomon Merchant M.D. 04/03/2023 3:40 PM
[2023-04-03] MEDS: guaiFENesin 600 MG TABCR PO SCH (15:57)
[2023-04-03] MEDS ORDERED: KETOROLAC 30 MG/ML VIAL IV ONE (16:04)
[2023-04-03] MEDS ORDERED: ONDANSETRON INJ 2 MG/ML 2 ML VIAL IV PRN (16:04)
[2023-04-03 16:33] LABS: Basophils # (auto) 0.01 K/uL (0.00-0.20); Basophils % (auto) 0.2 %; Hematocrit (blood only) 45.3 % (42.0-52.0); Hemoglobin 15.6 g/dl (14.0-18.0); Immature Granulocytes # (auto) 0.01 K/uL (0.01-0.20); Immature Granulocytes % (auto) 0.2 %; Lymphocytes # (auto) 0.31 K/uL (1.20-3.40); Mean Corpuscular Hemoglobin 29.9 pg (25.0-34.0); Mean Corpuscular Hgb Conc 34.4 g/dL (32.0-36.0); Mean Corpuscular Volume 86.8 fL (80.0-100.0); Mean Platelet Volume 9.1 fL (9.4-12.4); Monocytes # (auto) 0.38 K/uL (0.11-0.59); Monocytes % (auto) 7.3 %; Neutrophils # (auto) 4.47 K/uL (1.40-6.50); Neutrophils % (auto) 86.3 %; Platelet Count 102 K/uL (130-400); RDW Coefficient of Variation 12.7 % (11.5-14.5); RDW Standard Deviation 40.5 fL (36.4-46.3); Red Blood Count 5.22 M/uL (4.70-6.10); White Blood Count 5.18 K/ul (4.8-10.8)
[2023-04-03 16:46] LABS: BUN Creatinine Ratio 13.9 (10-20); Calcium 8.6 mg/dl (8.6-10.3); Creatinine Clr Calc Pharmacy 75.3 ml/min; Est GFR (Non-African American) 77.7 ml/min; Potassium 4.4 mmol/L (3.5-5.1)
[2023-04-03] MEDS: dexAMETHasone 6 MG in SYRINGE 0 ML IV SCH (19:15)
[2023-04-03] MEDS: KETOROLAC TROMETHAMINE 15 MG/ML VIAL IV PRN (20:25)
[2023-04-03] MEDS: oxyCODONE HCL IR 5 MG TAB (IMMEDIATE RELEASE) PO PRN (20:25)
[2023-04-03] MEDS ORDERED: ACETAMINOPHEN 500 MG TAB PO SCH ×2 (20:30→21:14)
[2023-04-03] MEDS ORDERED: guaiFENesin 600 MG TABCR PO SCH (21:00)
[2023-04-03] MEDS ORDERED: KETOROLAC TROMETHAMINE 15 MG/ML VIAL IV PRN (21:14)
[2023-04-03] MEDS ORDERED: amLODIPine BESYLATE 5 MG TAB PO ONE (21:14)
[2023-04-03] MEDS ORDERED: hydrALAZINE HCL 20 MG/ML VIAL IV ONE (21:14)
[2023-04-04] MEDS: guaiFENesin 600 MG TABCR PO SCH ×2 (00:10→09:37)
[2023-04-04] MEDS: oxyCODONE HCL IR 5 MG TAB (IMMEDIATE RELEASE) PO PRN ×2 (00:37→09:54)
[2023-04-04] MEDS: KETOROLAC TROMETHAMINE 15 MG/ML VIAL IV PRN ×2 (02:12→08:14)
[2023-04-04] MEDS: HYDROmorphone INJ 0.5 MG/0.5 ML SYR IV PRN ×2 (04:59→15:23)
[2023-04-04] MEDS: SODIUM CHLORIDE 0.9% 1,000 ML IV SCH ×3 (04:59→19:40)
[2023-04-04] MEDS ORDERED: ALBUT/IPRATROP 3MG/0.5MG NEB 3 ML VIAL NEB PRN ×2 (05:32→15:27)
[2023-04-04] MEDS: ACETAMINOPHEN 1,000 MG/100 ML VIAL IV SCH ×3 (05:48→21:19)
[2023-04-04] MEDS: ALBUT/IPRATROP 3MG/0.5MG NEB 3 ML VIAL NEB SCH ×2 (05:49→13:20)
[2023-04-04 07:42] LABS: Hematocrit (blood only) 41.8 % (42.0-52.0); Hemoglobin 14.8 g/dl (14.0-18.0); Immature Granulocytes # (auto) 0.01 K/uL (0.01-0.20); Immature Granulocytes % (auto) 0.2 %; Lymphocytes # (auto) 0.18 K/uL (1.20-3.40); Lymphocytes % (auto) 3.6 %; Mean Corpuscular Hemoglobin 30.1 pg (25.0-34.0); Mean Corpuscular Hgb Conc 35.4 g/dL (32.0-36.0); Mean Platelet Volume 9.1 fL (9.4-12.4); Monocytes # (auto) 0.26 K/uL (0.11-0.59); Monocytes % (auto) 5.3 %; Neutrophils # (auto) 4.49 K/uL (1.40-6.50); Neutrophils % (auto) 90.9 %; Platelet Count 152 K/uL (130-400); Polychromasia 1+; RDW Coefficient of Variation 12.9 % (11.5-14.5); RDW Standard Deviation 39.9 fL (36.4-46.3); Red Blood Count 4.92 M/uL (4.70-6.10); White Blood Count 4.94 K/ul (4.8-10.8)
[2023-04-04 07:43] LABS: BUN Creatinine Ratio 14.3 (10-20); Calcium 8.1 mg/dl (8.6-10.3); Creatinine Clr Calc Pharmacy 62.9 ml/min; Est GFR (African American) 64.6 ml/min; Est GFR (Non-African American) 55.7 ml/min; Potassium 4.2 mmol/L (3.5-5.1)
[2023-04-04] MEDS: TAMSULOSIN HCL 0.4 MG CAP PO SCH (08:16)
[2023-04-04] MEDS: amLODIPine BESYLATE 5 MG TAB PO SCH (08:16)
[2023-04-04] MEDS ORDERED: PHENAZOPYRIDINE HCL 200 MG TAB PO PRN (08:36)
--- NOTE | 2023-04-04 08:43 | Urology Progress Note ---
Date of Service April 04, 2023 Assessment & Plan (1) COVID-19: Plan: 63 yo M admitted for intractable pain secondary to an obstructing left proximal ureteral stone with mild hydroureteronephrosis. Patient afebrile Today's labscreatinine 1.33, no leukocytosis Urinalysis on arrival was not suggestive of infection Patient is COVID positive, denies any notable symptoms at present, now on room air Patient continues to have intermittent pain requiring IV and PO analgesia Previously discussed acute intervention with stent vs outpatient surgical procedures for stone treatment Discussed ideally recovering from COVID prior to surgical intervention unless it was emergent Patient and are preferring stent placement now, concerned that pain will not be controlled Reviewed with Dr. Fisher, will defer surgical intervention for now unless emergent Continue with supportive care, Tamsulosin, prn analgesia, prn antiemetics, and medical management per hospital medicine service Can add scheduled Tylenol and Pyridium to his regimen Discussed with hospital medicine team Will arrange outpatient follow-up to discuss definitive stone treatment Will continue to monitor and reassess need for stent while inpatient Admission and Anticipated Discharge Date Admission Date: April 03, 2023 Supervising Physician Co-Signing Physician Notes Discussed patient with RICHAR. Agree with plan. Agree that unless emergent, would recommend observation given his COVID status. Can attempt to get an outpatient 1 and done procedure done in the future. Subjective Patient seen and examined at bedside, chart reviewed present Patient continues to have intermittent severe abdominal discomfort, utilizing PO and IV analgesia Reports occasional nausea, no vomiting No fever or chills Voiding without difficulty, no dysuria or hematuria Reports mild dry cough Was on 3 L of supplemental oxygen overnight, now on room air Does not use oxygen at home Denies chest pain or shortness of breath Review of Systems Constitutional: as per Subjective / HPI Gastrointestinal: as per Subjective / HPI Genitourinary: + as per Subjective / HPI Physical Exam Constitutional: well developed and well nourished; no acute distress Respiratory: no respiratory distress and no labored breathing Cardiovascular: Extremities: no pedal edema Gastrointestinal (Abdomen): Inspection/Auscultation: abdomen normal to inspection Musculoskeletal: Head/Neck/Chest: normocephalic Neurologic: moves all extremities and awake Psychiatric: Orientation: alert and oriented x 3 Results & Data Vital Signs (Past 12 Hours) Vital Signs Temp Pulse Resp BP Pulse Ox O2 Del Method O2 Flow Rate 04/04/23 05:49 65 17 98 Nasal Cannula 3 04/04/23 04:00 36.8 C 62 18 146/80 H 98 Nasal Cannula 3 04/03/23 22:40 146/76 H 04/03/23 22:03 168/82 H 04/03/23 21:30 Nasal Cannula 3 04/03/23 21:30 36.6 C 57 L 18 183/86 H 99 Nasal Cannula 3 PG Care Time/CCT Total # of Minutes Spent Total Time Spent with Patient: Total time spent is greater than 50% in coordination of care (as documented) at patient's floor/unit and/or counseling patient: Coding Level of Care Code 89358 SUB INP/OBS CARE 04/26MIN Diagnoses COVID-19 U07.1
[2023-04-04] MEDS: dexAMETHasone 6 MG in SYRINGE 0 ML IV SCH (09:37)
[2023-04-04] MEDS ORDERED: REMDESIVIR 100 MG in SODIUM CHLORIDE 0.9% 230 ML IV SCH (12:00)
[2023-04-04] MEDS ORDERED: guaiFENesin 600 MG TABCR PO PRN (12:57)
--- NOTE | 2023-04-04 17:16 | Hospitalist Progress Note ---
Date of Service April 04, 2023 Assessment & Plan (1) Intractable abdominal pain: Plan: -Admit to [facility] -Continue IV with NSS 125 ml/hr for hydration -Consult urology, Dr. Dawson for possible procedure/stent placement -- unlikely with positive covid that this will be done unless it is an emergency procedure -Pain control with IV Dilaudid, Flomax, bowel regimen, strain all urine -No leukocytosis, afebrile currently-no blood cultures were obtained initially so will order now with covid positive -Allow diet per urology, they will make NPO after midnight if their team warrants emergent procedure tomorrow -Appreciate urology input and recommendation-initial recommendation was to observe and then send patient home with an outpatient appointment for definitive treatment -The patient's symptoms have been worsening and further evaluation by the urologist and myself it was decided to have stent placement as early as tomorrow afternoon -Patient will be kept n.p.o. from midnight today to have the proposed procedure tomorrow afternoon -Will continue current medications (2) COVID-19: Plan: - Covid positive on swab - Pt symptoms have been going on for several days, reports was tested positive last week with COVID. - afebrile here. Pt admits to possible fever/chills last night -- has told urology 3 days of fevers. - Continue on NC and wean as tolerated. he is on 4 L nc currently and has 84% on RA upon arrival here. Does not require supplemental o2 at baseline. - Started guaifenesin po, albuterol nebs Q4H and Q2H prn, incentive spirometry, flutter and decadron IV - Obtain stat CXR now - Consider CT chest pending clinical improvement -Has been saturating normally on room air without any respiratory symptoms -Started on intravenous dexamethasone and remdesivir which were discontinued -Chest remain clear on auscultation and the patient remains asymptomatic -Bronchodilators will be as needed and cough medicine will be as needed (3) Nephrolithiasis: (4) Coronary artery calcification: Plan: - Noted on imaging , pt should have follow up with cardiology, nonemergent (5) Diverticulosis: Plan: - Noted on imaging, hx of colonoscopy - Chronic, stable, no acute flare DVT ppx: Teds Lines: 2 PIV FEN/GI: NSS at 125 mL/hr, n.p.o., CODE STATUS: Full code Discussed with the patient in detail Will have stent placement tomorrow afternoon Admission and Anticipated Discharge Date Admission Date: April 03, 2023 Subjective 04/04/2023 The patient was seen and examined in medical floor and in the COVID room He has been complaining of ongoing pain in the right flank area and which seems to be episodic He does not have any hematuria, no fever and no chills Denies any respiratory symptoms Review of Systems Review of Systems: All systems reviewed and are unremarkable except as noted below Physical Exam Physical Exam: Lying in bed without any acute distress Constitutional: well developed, well nourished and + ill appearing Eyes: PERRL, conjunctivae normal, anicteric sclerae ENMT: external ear and nose normal, oropharynx normal Neck: trachea midline, no thyromegaly Respiratory: no respiratory distress Auscultation: lungs clear to auscultation bilaterally Cardiovascular: Rate/Rhythm: regular rate and regular rhythm; not tachycardic Heart Sounds: normal S1 and normal S2; no murmur Gastrointestinal (Abdomen): Inspection/Auscultation: normal bowel sounds; abdomen not distended Percussion/Palpation: abdomen soft; abdomen nontender Musculoskeletal: No acute arthritis involving any of the joint Neurologic: normal touch/pain/proprioception and moves all extremities; no focal motor deficits Psychiatric: A+Ox3, euthymic affect Lymphatic: no cervical or axillary lymphadenopathy Results & Data Results & Data Vital Signs (Past 12 Hours) Vital Signs Temp Pulse Resp BP Pulse Ox O2 Del Method O2 Flow Rate 04/04/23 12:11 36.7 C 66 15 167/79 H 95 Room Air 04/04/23 10:58 Room Air 04/04/23 05:49 65 17 98 Nasal Cannula 3 Diagnostic Findings Laboratory Results WBC 4.94 K/ul (4.8-10.8) 04/04/23 06:59 RBC 4.92 M/uL (4.70-6.10) 04/04/23 06:59 Hgb 14.8 g/dl (14.0-18.0) 04/04/23 06:59 Hct 41.8 % (42.0-52.0) L 04/04/23 06:59 MCV 85.0 fL (80.0-100.0) 04/04/23 06:59 MCH 30.1 pg (25.0-34.0) 04/04/23 06:59 MCHC 35.4 g/dL (32.0-36.0) 04/04/23 06:59 RDW Std Deviation 39.9 fL (36.4-46.3) 04/04/23 06:59 RDW Coeff of Adelfo 12.9 % (11.5-14.5) 04/04/23 06:59 Plt Count 152 K/uL (130-400) 04/04/23 06:59 MPV 9.1 fL (9.4-12.4) L 04/04/23 06:59 Immature Gran % (Auto) 0.2 % 04/04/23 06:59 Neut % (Auto) 90.9 % 04/04/23 06:59 Lymph % (Auto) 3.6 % 04/04/23 06:59 [place] % (Auto) 5.3 % 04/04/23 06:59 Eos % (Auto) 0.0 % 04/04/23 06:59 Baso % (Auto) 0.0 % 04/04/23 06:59 Neut # (Auto) 4.49 K/uL (1.40-6.50) 04/04/23 06:59 Lymph # (Auto) 0.18 K/uL (1.20-3.40) L 04/04/23 06:59 [place] # (Auto) 0.26 K/uL (0.11-0.59) 04/04/23 06:59 Eos # (Auto) 0.00 K/uL (0.00-0.50) 04/04/23 06:59 Baso # (Auto) 0.00 K/uL (0.00-0.20) 04/04/23 06:59 Immature Gran # (Auto) 0.01 K/uL (0.01-0.20) 04/04/23 06:59 Polychromasia 1+ 04/04/23 06:59 Sodium 133 mmol/L (136-145) L 04/04/23 06:59 Potassium 4.2 mmol/L (3.5-5.1) 04/04/23 06:59 Chloride 103 mmol/L (98-107) 04/04/23 06:59 Carbon Dioxide 20 mmol/L (21-32) L 04/04/23 06:59 Anion Gap 10 (3-11) 04/04/23 06:59 BUN 19 mg/dl (6-23) 04/04/23 06:59 Creatinine 1.33 mg/dl (0.6-1.4) D 04/04/23 06:59 Est Cr Clr Drug Dosing 62.9 ml/min 04/04/23 06:59 Est GFR ( Amer) 64.6 ml/min 04/04/23 06:59 Est GFR (Non-Af Amer) 55.7 ml/min 04/04/23 06:59 BUN/Creatinine Ratio 14.3 (10-20) 04/04/23 06:59 Glucose 157 mg/dl (70-99(Fasting)) H 04/04/23 06:59 Calcium 8.1 mg/dl (8.6-10.3) L 04/04/23 06:59 Total Bilirubin 1.1 mg/dl (0.2-1.0) H 04/03/23 07:26 AST 20 U/L (13-39) 04/03/23 07:26 ALT 19 U/L (7-52) 04/03/23 07:26 Alkaline Phosphatase 67 U/L (34-104) 04/03/23 07:26 Total Protein 6.7 gm/dl (6.0-8.3) 04/03/23 07:26 Albumin 4.2 gm/dl (3.4-5.0) 04/03/23 07:26 Globulin 2.5 gm/dl (2.5-4.0) 04/03/23 07:26 Albumin/Globulin Ratio 1.7 (0.9-2) 04/03/23 07:26 Lipase 13 U/L (11-82) 04/03/23 07:26 Urine Color Yellow 04/03/23 09:38 Urine Appearance Clear (Clear) 04/03/23 09:38 Urine pH 6.5 (4.5-7.5) 04/03/23 09:38 Ur Specific [place] 1.016 (1.000-1.030) 04/03/23 09:38 Urine Protein Negative (Negative) 04/03/23 09:38 Urine Glucose (UA) Trace (Negative) H 04/03/23 09:38 Urine Ketones 2+ (Negative) H 04/03/23 09:38 Urine Blood 1+ (Negative) H 04/03/23 09:38 Urine Nitrite Negative (Negative) 04/03/23 09:38 Urine Bilirubin Negative (Negative) 04/03/23 09:38 Urine Urobilinogen Negative (Negative) 04/03/23 09:38 Ur Leukocyte Esterase Negative (Negative) 04/03/23 09:38 Urine WBC (Auto) 1-5 /hpf (0-5) 04/03/23 09:38 Urine RBC (Auto) 0-4 /hpf (0-4) 04/03/23 09:38 U Hyaline Cast (Auto) 1-5 /lpf (0-5) 04/03/23 09:38 U Epithel Cells (Auto) 10-20 /lpf (0-5) H 04/03/23 09:38 Urine Bacteria (Auto) Negative (Negative) 04/03/23 09:38 SARS-CoV-2 (PCR) POSITIVE (Negative) A* 04/03/23 11:55 Influenza Type A (PCR) Negative (Neg) 04/03/23 11:55 Influenza Type B (PCR) Negative (Neg) 04/03/23 11:55 RSV (RT-PCR) Negative (Neg) 04/03/23 11:55 Impressions Abdomen/Pelvis CT 04/03/23 07:49 CT SCAN OF THE ABDOMEN AND PELVIS WITHOUT IV CONTRAST CLINICAL HISTORY: Left sided abdominal pain/flank pain. COMPARISON STUDY: Lumbar spine radiographs dated 09/28/2021. TECHNIQUE: CT scan of the abdomen and pelvis is performed from the lung bases to the proximal femora. Images are reviewed in the axial, sagittal, and coronal planes. IV contrast was not administered for this examination. A dose lowering technique was utilized adhering to the principles of ALARA. CT DOSE: 1299.14 mGy.cm FINDINGS: Lung bases: The heart is mildly enlarged and without pericardial effusion. The coronary arteries are densely calcified. The lung bases are clear noting dependent atelectasis. There is a small hiatal hernia. Liver: The unenhanced liver is normal in size, contour, and attenuation. There is no intrahepatic biliary ductal dilatation. Gallbladder: Unremarkable. Spleen: Normal in size and attenuation. Pancreas: Unremarkable. Adrenal glands: Unremarkable. Kidneys: The unenhanced kidneys are normal in size. There is an 8 mm obstructing calculus in the left proximal ureter seen on image #201. This causes mild left hydroureteronephrosis. There is left-sided perinephric and periureteric stranding/fluid. No additional calculi are identified in either kidney. There is no right ureteral stones or right-sided hydronephrosis. There is no evidence of contour deforming renal mass lesion. Abdominal vasculature: The abdominal aorta is normal in course and caliber noting mild to moderate atherosclerotic calcification. Bowel: There are scattered colonic diverticula without CT evidence of acute diverticulitis. No bowel obstruction is seen. The appendix is well-visualized and normal. Peritoneum: There is no intraperitoneal free air or abdominal ascites. There is a fat-containing umbilical hernia. Lymphadenopathy: None. Pelvic viscera: The prostate gland is mildly enlarged and heterogeneous. The bladder is normal as visualized. Skeletal structures: There is mild lumbosacral spondylosis. No lytic or blastic lesions are seen. IMPRESSION: 1. There is an 8 mm obstructing calculus in the left proximal ureter. This causes mild left hydroureteronephrosis. 2. No additional calculi are identified in either kidney. 3. Mild cardiomegaly with advanced coronary artery calcification. Consider nonemergent follow up with cardiology. 4. Mild colonic diverticulosis without CT evidence of acute diverticulitis. 5. Additional findings as above. ACT 112: Negative or not required by law. Electronically signed by: Ovidio Perry M.D. 04/03/2023 8:28 AM Chest X-Ray 04/03/23 14:50 XR chest 1V portable CLINICAL HISTORY: Covid + COMPARISON STUDY: No previous studies for comparison. FINDINGS: Lung volumes are normal. Lungs are clear. There is no pneumothorax or pleural effusion. Mild cardiomegaly. Mediastinal contours are normal. There is no evidence for pulmonary edema. IMPRESSION: No acute cardiopulmonary findings. ACT 112: Negative or not required by law. Electronically signed by: Solomon Merchant M.D. 04/03/2023 3:40 PM Medications Administered Current Inpatient Medications Acetaminophen (Acetaminophen 500 Mg Tab) 1,000 mg PO Q8 [facility] Stop: 05/03/23 20:29 Last Admin: 04/03/23 22:06 Dose: 1,000 mg Albuterol (Albut/Ipratrop 3mg/0.5mg Neb 3 Ml Vial) 3 ml NEB Q6R PRN; Protocol PRN Reason: Shortness Of Breath Or Wheezing Stop: 05/04/23 06:59 Amlodipine Besylate (Amlodipine Besylate 5 Mg Tab) 5 mg PO QAM [facility] Stop: 05/04/23 08:59 Last Admin: 04/04/23 08:16 Dose: 5 mg Guaifenesin (Guaifenesin 600 Mg Tabcr) 1,200 mg PO Q12 PRN PRN Reason: Cough Stop: 05/03/23 14:49 Hydralazine HCl (Hydralazine Hcl 20 Mg/Ml Vial) 5 mg IV Q6H PRN PRN Reason: systolic bp > 160 Stop: 05/03/23 13:41 Hydromorphone HCl (Hydromorphone Inj 0.5 Mg/0.5 Ml Syr) 0.5 mg IV Q4H PRN PRN Reason: moderate to severe pain Stop: 04/17/23 13:41 Last Admin: 04/04/23 15:23 Dose: 0.5 mg Sodium Chloride (Nss) 1,000 mls @ 125 mls/hr IV .Q8H [facility] Stop: 05/03/23 13:41 Last Admin: 04/04/23 12:07 Dose: 125 mls/hr Acetaminophen (Ofirmev) 1,000 mg in 100 mls @ 400 mls/hr IV Q8H [facility] Stop: 04/07/23 05:59 Last Infusion: 04/04/23 13:42 Dose: Infused Ketorolac Tromethamine (Ketorolac Tromethamine 15 Mg/Ml Vial) 15 mg IV Q6H PRN PRN Reason: mild Pain (Scale 1,2,3) Stop: 04/08/23 16:35 Last Admin: 04/04/23 08:14 Dose: 15 mg Ondansetron HCl (Ondansetron Inj 2 Mg/Ml 2 Ml Vial) 4 mg IV Q4H PRN PRN Reason: Nausea Stop: 05/03/23 16:03 Last Admin: 04/03/23 16:16 Dose: 4 mg Oxycodone HCl (Oxycodone Hcl Ir 5 Mg Tab (Immediate Release)) 5 mg PO Q4H PRN PRN Reason: Moderate Pain (Scale 4, 5, 6) Stop: 04/17/23 16:35 Last Admin: 04/04/23 09:54 Dose: 5 mg Phenazopyridine HCl (Phenazopyridine Hcl 200 Mg Tab) 200 mg PO TID PRN PRN Reason: Dysuria Stop: 05/04/23 08:35 Sodium Chloride (Sodium Chloride 0.65% Na Soln 45 Ml ([place])) 2 sprays NA Q2H PRN PRN Reason: dry nose Stop: 05/03/23 14:40 Tamsulosin HCl (Tamsulosin Hcl 0.4 Mg Cap) 0.4 mg PO [facility] Stop: 05/03/23 13:59 Last Admin: 04/04/23 08:16 Dose: 0.4 mg
[2023-04-05] MEDS: SODIUM CHLORIDE 0.9% 1,000 ML IV SCH ×2 (03:27→12:15)
[2023-04-05] MEDS: ACETAMINOPHEN 1,000 MG/100 ML VIAL IV SCH (05:01)
[2023-04-05 07:31] LABS: Eosinophils # (auto) 0.01 K/uL (0.00-0.50); Eosinophils % (auto) 0.1 %; Hematocrit (blood only) 40.2 % (42.0-52.0); Immature Granulocytes # (auto) 0.02 K/uL (0.01-0.20); Immature Granulocytes % (auto) 0.3 %; Lymphocytes # (auto) 0.57 K/uL (1.20-3.40); Lymphocytes % (auto) 8.4 %; Mean Corpuscular Hemoglobin 29.9 pg (25.0-34.0); Mean Corpuscular Hgb Conc 34.8 g/dL (32.0-36.0); Mean Corpuscular Volume 85.7 fL (80.0-100.0); Mean Platelet Volume 9.1 fL (9.4-12.4); Monocytes # (auto) 0.58 K/uL (0.11-0.59); Monocytes % (auto) 8.6 %; Neutrophils # (auto) 5.58 K/uL (1.40-6.50); Neutrophils % (auto) 82.6 %; Platelet Count 148 K/uL (130-400); RDW Standard Deviation 40.4 fL (36.4-46.3); Red Blood Count 4.69 M/uL (4.70-6.10); White Blood Count 6.76 K/ul (4.8-10.8)
[2023-04-05 07:34] LABS: BUN Creatinine Ratio 18.5 (10-20); Calcium 8.1 mg/dl (8.6-10.3); Creatinine Clr Calc Pharmacy 77.4 ml/min; Est GFR (Non-African American) 71.6 ml/min
[2023-04-05 08:17] LABS: Albumin Level 3.7 gm/dl (3.4-5.0); Bilirubin Direct 0.1 mg/dl (0-0.2); Bilirubin,Total 0.6 mg/dl (0.2-1.0); Chol HDL Ratio 5.5 (0-5); Total Protein 5.8 gm/dl (6.0-8.3)
[2023-04-05] MEDS: TAMSULOSIN HCL 0.4 MG CAP PO SCH (09:33)
[2023-04-05] MEDS: amLODIPine BESYLATE 5 MG TAB PO SCH (09:33)
--- NOTE | 2023-04-05 10:38 | Urology Progress Note ---
Date of Service April 05, 2023 Assessment & Plan (1) Ureterolithiasis: Plan: We reviewed the stone on his CT scan. It is large enough that he is unlikely to pass spontaneously, although there was a chance that he could. We discussed management options of the stone. While he is here in the hospital, we could offer cystoscopy, retrograde pyelogram and ureteral stent placement. This would hopefully help with the pain, however would have the associated risks of stent discomfort, hematuria, infection, injury to the urinary tract, inability to place the stent. We also discussed that he may be at increased risk for anesthesia complications with his current COVID-19 infection. We also discussed that an additional procedure will be required to treat the stone going forward. Since there is no evidence of UTI or renal dysregulation at this point, he would be a candidate for medical expulsive therapy and stone management as an outpatient, once he has recovered somewhat from COVID-19. Ideally, the benefit of this would be the stone could be addressed in a single procedure. After consideration of the options, he would like to try to proceed with outpatient stone management. At this point, I think he is appropriate for discharge home from the urology perspective. Will have the office call to coordinate stone management. Order for urine culture was placed to rule out UTI. He should be discharged home on Tylenol, ibuprofen, Pyridium, tamsulosin and can use narcotics for breakthrough pain. Admission and Anticipated Discharge Date Admission Date: April 03, 2023 Subjective Reports significant improvement in his pain today. He has not required IV pain medications overnight. Has not passed the stone. Not having any fevers or chills No leukocytosis (WBC 6.76) Creatinine stable (1.08) Blood cultures negative at 24 hours Physical Exam Physical Exam: Resting comfortably in bed, NAD Results & Data Vital Signs (Past 12 Hours) Vital Signs Temp Pulse Resp BP Pulse Ox O2 Del Method 04/05/23 07:25 36.8 C 77 18 161/79 H 97 Room Air PG Care Time/CCT Total # of Minutes Spent Total Time Spent with Patient: Total time spent is greater than 50% in coordination of care (as documented) at patient's floor/unit and/or counseling patient: Coding Level of Care Code 70919 SUB INP/OBS CARE 04/26MIN Diagnoses Ureterolithiasis N20.1
--- NOTE | 2023-04-05 11:41 | Hospitalist Progress Note ---
Date of Service April 05, 2023 Assessment & Plan (1) Intractable abdominal pain: Plan: Obstructed left ureteric stone with mild hydronephrosis -Continue IV with NSS 125 ml/hr for hydration -Consult urology, Dr. Dawson for possible procedure/stent placement -- unlikely with positive covid that this will be done unless it is an emergency procedure -Pain control with IV Dilaudid, Flomax, bowel regimen, strain all urine -No leukocytosis, afebrile currently-no blood cultures were obtained initially so will order now with covid positive -Allow diet per urology, they will make NPO after midnight if their team warrants emergent procedure tomorrow -Appreciate urology input and recommendation-initial recommendation was to observe and then send patient home with an outpatient appointment for definitive treatment -The patient's symptoms have been worsening and further evaluation by the urologist and myself it was decided to have stent placement as early as tomorrow afternoon -Patient will be kept n.p.o. from midnight today to have the proposed procedure tomorrow afternoon -Will continue current medications -Denies any more pain , any fever and or chills or any nausea and or vomiting -Was seen by the urologist this morning and plan for discharge this afternoon with an outpatient appointment for definitive management of left ureteric stone -Patient remained free from symptoms and will be discharged home this afternoon (2) COVID-19: Plan: - Covid positive on swab - Pt symptoms have been going on for several days, reports was tested positive last week with COVID. - afebrile here. Pt admits to possible fever/chills last night -- has told urology 3 days of fevers. - Continue on NC and wean as tolerated. he is on 4 L nc currently and has 84% on RA upon arrival here. Does not require supplemental o2 at baseline. - Started guaifenesin po, albuterol nebs Q4H and Q2H prn, incentive spirometry, flutter and decadron IV - Obtain stat CXR now - Consider CT chest pending clinical improvement -Has been saturating normally on room air without any respiratory symptoms -Started on intravenous dexamethasone and remdesivir which were discontinued -Chest remain clear on auscultation and the patient remains asymptomatic -Bronchodilators will be as needed and cough medicine will be as needed -Repeat COVID test came back positive -He will need to be quarantined at home 8 more days but does not require any treatment (3) Nephrolithiasis: (4) Coronary artery calcification: Plan: - Noted on imaging , pt should have follow up with cardiology, nonemergent -Lipid profile was (5) Diverticulosis: Plan: - Noted on imaging, hx of colonoscopy - Chronic, stable, no acute flare DVT ppx: Teds Lines: 2 PIV FEN/GI: NSS at 125 mL/hr, n.p.o., CODE STATUS: Full code Discussed with the patient in detail Evaluated by the urologist this morning and was plan to do the procedure as an outpatient The patient is agreeable to that Admission and Anticipated Discharge Date Admission Date: April 03, 2023 Subjective 04/04/2023 The patient was seen and examined in medical floor and in the COVID room He has been complaining of ongoing pain in the right flank area and which seems to be episodic He does not have any hematuria, no fever and no chills Denies any respiratory symptoms 04/05/2023 The patient was seen and examined in medical floor and in the COVID room He does not have any symptoms today, denies any abdominal pain or any shortness of breath at rest She was seen by the urologist and planned to have the procedure as an outpatient for the left ureteric stone Review of Systems Review of Systems: All systems reviewed and are unremarkable except as noted below Physical Exam Physical Exam: Lying in bed without any acute distress Constitutional: well developed, well nourished and + ill appearing Eyes: PERRL, conjunctivae normal, anicteric sclerae ENMT: external ear and nose normal, oropharynx normal Neck: trachea midline, no thyromegaly Respiratory: no respiratory distress Auscultation: lungs clear to auscultation bilaterally Cardiovascular: Rate/Rhythm: regular rate and regular rhythm; not tachycardic Heart Sounds: normal S1 and normal S2; no murmur Gastrointestinal (Abdomen): Inspection/Auscultation: normal bowel sounds; abdomen not distended Percussion/Palpation: abdomen soft; abdomen nontender Neurologic: normal touch/pain/proprioception and moves all extremities; no focal motor deficits Psychiatric: A+Ox3, euthymic affect Lymphatic: no cervical or axillary lymphadenopathy Results & Data Results & Data Vital Signs (Past 12 Hours) Vital Signs Temp Pulse Resp BP Pulse Ox O2 Del Method 04/05/23 07:25 36.8 C 77 18 161/79 H 97 Room Air Laboratory Results Short CBC 04/05/23 Range/Units 06:49 WBC 6.76 (4.8-10.8) K/ul Hgb 14.0 (14.0-18.0) g/dl Hct 40.2 L (42.0-52.0) % Plt Count 148 (130-400) K/uL BMP 04/05/23 06:49 Sodium 139 Potassium 4.0 Chloride 109 H Carbon Dioxide 24 BUN 20 Creatinine 1.08 Glucose 106 H Calcium 8.1 L Liver Function 04/05/23 Range/Units 06:49 Total Bilirubin 0.6 D (0.2-1.0) mg/dl Direct Bilirubin 0.1 (0-0.2) mg/dl AST 15 (13-39) U/L ALT 12 (7-52) U/L Alkaline Phosphatase 51 (34-104) U/L Albumin 3.7 (3.4-5.0) gm/dl Medications Administered Current Inpatient Medications Acetaminophen (Acetaminophen 500 Mg Tab) 1,000 mg PO Q8 LIBRADO Stop: 05/03/23 20:29 Last Admin: 04/03/23 22:06 Dose: 1,000 mg Albuterol (Albut/Ipratrop 3mg/0.5mg Neb 3 Ml Vial) 3 ml NEB Q6R PRN; Protocol PRN Reason: Shortness Of Breath Or Wheezing Stop: 05/04/23 06:59 Amlodipine Besylate (Amlodipine Besylate 5 Mg Tab) 5 mg PO QAM LIBRADO Stop: 05/04/23 08:59 Last Admin: 04/05/23 09:33 Dose: 5 mg Guaifenesin (Guaifenesin 600 Mg Tabcr) 1,200 mg PO Q12 PRN PRN Reason: Cough Stop: 05/03/23 14:49 Hydralazine HCl (Hydralazine Hcl 20 Mg/Ml Vial) 5 mg IV Q6H PRN PRN Reason: systolic bp > 160 Stop: 05/03/23 13:41 Hydromorphone HCl (Hydromorphone Inj 0.5 Mg/0.5 Ml Syr) 0.5 mg IV Q4H PRN PRN Reason: moderate to severe pain Stop: 04/17/23 13:41 Last Admin: 04/04/23 15:23 Dose: 0.5 mg Sodium Chloride (Nss) 1,000 mls @ 125 mls/hr IV .Q8H LIBRADO Stop: 05/03/23 13:41 Last Infusion: 04/05/23 12:15 Dose: Infused Acetaminophen (Ofirmev) 1,000 mg in 100 mls @ 400 mls/hr IV Q8H [facility] Stop: 04/07/23 05:59 Last Infusion: 04/05/23 05:16 Dose: Infused Ketorolac Tromethamine (Ketorolac Tromethamine 15 Mg/Ml Vial) 15 mg IV Q6H PRN PRN Reason: mild Pain (Scale 1,2,3) Stop: 04/08/23 16:35 Last Admin: 04/04/23 08:14 Dose: 15 mg Ondansetron HCl (Ondansetron Inj 2 Mg/Ml 2 Ml Vial) 4 mg IV Q4H PRN PRN Reason: Nausea Stop: 05/03/23 16:03 Last Admin: 04/03/23 16:16 Dose: 4 mg Oxycodone HCl (Oxycodone Hcl Ir 5 Mg Tab (Immediate Release)) 5 mg PO Q4H PRN PRN Reason: Moderate Pain (Scale 4, 5, 6) Stop: 04/17/23 16:35 Last Admin: 04/04/23 09:54 Dose: 5 mg Phenazopyridine HCl (Phenazopyridine Hcl 200 Mg Tab) 200 mg PO TID PRN PRN Reason: Dysuria Stop: 05/04/23 08:35 Sodium Chloride (Sodium Chloride 0.65% Na Soln 45 Ml ([place])) 2 sprays NA Q2H PRN PRN Reason: dry nose Stop: 05/03/23 14:40 Tamsulosin HCl (Tamsulosin Hcl 0.4 Mg Cap) 0.4 mg PO QAM LIBRADO Stop: 05/03/23 13:59 Last Admin: 04/05/23 09:33 Dose: 0.4 mg
[2023-04-05] MEDS: oxyCODONE HCL IR 5 MG TAB (IMMEDIATE RELEASE) PO PRN (13:46)
--- NOTE | 2023-04-05 14:59 | Electrocardiogram Report ---
Test Reason : Blood Pressure : / mmHG Vent. Rate : 066 BPM Atrial Rate : 066 BPM P-R Int : 152 ms QRS Dur : 092 ms QT Int : 400 ms P-R-T Axes : 048 049 035 degrees QTc Int : 419 ms Normal sinus rhythm Nonspecific T wave abnormality Abnormal ECG When compared with ECG of 04-OCT-2017 02:40, Nonspecific T wave abnormality, worse in Inferior leads Nonspecific T wave abnormality now evident in Lateral leads Confirmed by Ryan Henao ([id number]) on 04/05/2023 2:58:36 PM Referred By: REFERRED SELF Confirmed By:Ryan Henao
== END 2023-04-05 15:19 | disposition home or self-care (01) | DRG 693 ==
LOC: ED 07:06 → EDINP 11:34 → SUATTDRO 11:34 → EDINP 13:43 → 3W 21:11

== ENCOUNTER 2023-04-08 18:29 | Inpatient (IN) ==
--- NOTE | 2023-04-08 18:32 | ED Triage Note ---
Date of Service April 08, 2023 Provider in Triage Author: Keily Cross History of Present Illness This patient was briefly evaluated while in triage. An abbreviated physical exam was performed. This patient is a 63-year-old Male who presents to the ED for evaluation of abdominal pain with known kidney stone. He reports he has an 8mm obstructing stone left side. Reports has not had bowel movement since last Sunday. Physical Exam Initial orders for labs and / or imaging were placed and patient was placed in the waiting area until a bed is available. Please see further documentation for the full ED course.
[2023-04-08] MEDS ORDERED: HYDROmorphone INJ 0.5 MG/0.5 ML SYR IV STA ×2 (18:34→20:54)
[2023-04-08] MEDS ORDERED: SODIUM CHLORIDE 0.9% 1,000 ML IV STA (18:34)
[2023-04-08] MEDS ORDERED: ONDANSETRON INJ 2 MG/ML 2 ML VIAL IV STA (18:34)
[2023-04-08] MEDS ORDERED: KETOROLAC TROMETHAMINE 15 MG/ML VIAL IV STA (18:44)
[2023-04-08 19:09] LABS: Basophils # (auto) 0.01 K/uL (0.00-0.20); Basophils % (auto) 0.1 %; Eosinophils # (auto) 0.04 K/uL (0.00-0.50); Eosinophils % (auto) 0.4 %; Hematocrit (blood only) 42.8 % (42.0-52.0); Immature Granulocytes # (auto) 0.06 K/uL (0.01-0.20); Immature Granulocytes % (auto) 0.7 %; Lymphocytes # (auto) 0.74 K/uL (1.20-3.40); Mean Corpuscular Hemoglobin 29.6 pg (25.0-34.0); Mean Corpuscular Volume 84.4 fL (80.0-100.0); Mean Platelet Volume 8.8 fL (9.4-12.4); Monocytes # (auto) 0.73 K/uL (0.11-0.59); Monocytes % (auto) 7.9 %; Neutrophils # (auto) 7.65 K/uL (1.40-6.50); Neutrophils % (auto) 82.9 %; Platelet Count 200 K/uL (130-400); RDW Coefficient of Variation 12.5 % (11.5-14.5); RDW Standard Deviation 37.7 fL (36.4-46.3); Red Blood Count 5.07 M/uL (4.70-6.10); White Blood Count 9.23 K/ul (4.8-10.8)
[2023-04-08 19:21] LABS: Albumin Globulin Ratio 1.6 (0.9-2); Albumin Level 4.2 gm/dl (3.4-5.0); BUN Creatinine Ratio 13.8 (10-20); Bilirubin,Total 0.8 mg/dl (0.2-1.0); Calcium 9.3 mg/dl (8.6-10.3); Creatinine Clr Calc Pharmacy 55.1 ml/min; Est GFR (African American) 61.7 ml/min; Est GFR (Non-African American) 53.3 ml/min; Globulin 2.7 gm/dl (2.5-4.0); Potassium 3.6 mmol/L (3.5-5.1); Total Protein 6.9 gm/dl (6.0-8.3)
[2023-04-08] MEDS ORDERED: KETOROLAC TROMETHAMINE 15 MG/ML VIAL IV PRN (21:08)
--- NOTE | 2023-04-08 21:21 | History & Physical Report ---
Date of Service April 08, 2023 Assessment & Plan (1) Renal colic on left side: Plan: 63-year-old male with past med significant for hypertension who was recently in the hospital for left ureteral stone and was diagnosed with COVID and was discharged to follow as outpatient comes back with severe left flank pain. Patient says since discharge he is in a lot of pain. Currently seems to be in extreme pain. Complains of shortness of breath and nausea with pain. Afebrile. No cough no headache no chest pain. He states he has some blood in the urine. No pain while micturating. Somewhat constipated. Renal colic on left side 8 mm obstructing calculus in the left proximal ureter with mild left hydroureteronephrosis on the CAT scan done in Apr 03 N.p.o. IV fluids IV Dilaudid and Toradol as needed Continue Flomax Urology consult Hypertension On amlodipine COVID COVID precautions DVT prophylaxis SCDs Disposition medical floor History of Present Illness Chief Complaint: Left renal colic Primary Care Provider: Broderick Kwok MD 63-year-old male with past med history significant for hypertension who was recently in the hospital for left ureteral stone and was diagnosed with COVID and was discharged to follow as outpatient comes back with severe left flank pain. Patient says since discharge he is in a lot of pain. Currently seems to be in extreme pain. Complains of shortness of breath and nausea with pain. Afebrile. No cough no headache no chest pain. He states he has some blood in the urine. No pain while micturating. Somewhat constipated. Past medical history. As mentioned above Past surgical history. Colonoscopy. Removal of hydrocele. Repair of nasal septum. Social history. No smoking. No alcohol. No drugs. Family history. Father had breast cancer. Brother had lung cancer. Mother had Alzheimer's disease. Allergies Allergy/AdvReac Type Severity Reaction Status Date / Time No Known Allergies Allergy Verified 04/08/23 19:58 Home Medications Medication Instructions Recorded Confirmed Type amlodipine 5 mg tablet (Norvasc) 5 mg PO QAM #30 tabs 04/05/23 04/08/23 Rx oxycodone 5 mg tablet 5 mg PO Q4H PRN pain #10 tabs 04/05/23 04/08/23 Rx phenazopyridine 200 mg tablet 200 mg PO TID PRN pain #30 tabs 04/05/23 04/08/23 Rx (Pyridium) tamsulosin 0.4 mg capsule 0.4 mg PO QAM #30 caps 04/05/23 04/08/23 Rx Past Med/Surg History Medical History Ureterolithiasis Surgical History H/O nasal septoplasty History of hydrocelectomy Hx of colonoscopy Family History Mother Alzheimer disease Father Breast cancer Brother Cancer Lung cancer Social History Smoking Status: Never smoker Hx Alcohol Use: No Hx Substance Use: No Preferred Language: Guatemalan Communication Ability: Effective Medical Geneticist Required: No Beliefs That Will Affect Care: None Current Living Situation: Spouse Feels Safe at Home: Yes Safety Concerns: Feels Safe At This Time Assistive Devices: None Review of Systems Review of Systems: All systems reviewed & are unremarkable except as noted in HPI & below Physical Exam Physical Exam: General- seems in severe pain Head- atraumatic Eyes- PERRL. Lungs- clear to auscultation no wheezing or crackles. Heart- regular rhythm; no murmur, no gallop. Abdomen- soft non distended. Extremities- no pretibial edema, moves extremities. Neuro- alert, oriented no facial palsy; no dysarthria; moves extremities. Skin- warm & dry Results & Data Results & Data Vital Signs (Past 12 Hours) Vital Signs Temp Pulse Pulse Resp BP BP Pulse Ox 04/08/23 20:28 78 18 147/85 H 95 04/08/23 20:06 75 16 155/81 H 95 04/08/23 18:48 84 19 96 04/08/23 18:47 92 H 12 154/91 H 97 04/08/23 18:45 89 04/08/23 18:31 36.6 C 112 H 20 106/73 96 O2 Del Method O2 Flow Rate 04/08/23 20:28 Nasal Cannula 2 04/08/23 20:06 Room Air 04/08/23 18:48 Room Air 04/08/23 18:47 Room Air 04/08/23 18:45 04/08/23 18:31 Room Air Diagnostic Findings Laboratory Results WBC 9.23 K/ul (4.8-10.8) 04/08/23 18:46 RBC 5.07 M/uL (4.70-6.10) 04/08/23 18:46 Hgb 15.0 g/dl (14.0-18.0) 04/08/23 18:46 Hct 42.8 % (42.0-52.0) 04/08/23 18:46 MCV 84.4 fL (80.0-100.0) 04/08/23 18:46 MCH 29.6 pg (25.0-34.0) 04/08/23 18:46 MCHC 35.0 g/dL (32.0-36.0) 04/08/23 18:46 RDW Std Deviation 37.7 fL (36.4-46.3) 04/08/23 18:46 RDW Coeff of Adelfo 12.5 % (11.5-14.5) 04/08/23 18:46 Plt Count 200 K/uL (130-400) 04/08/23 18:46 MPV 8.8 fL (9.4-12.4) L 04/08/23 18:46 Immature Gran % (Auto) 0.7 % 04/08/23 18:46 Neut % (Auto) 82.9 % 04/08/23 18:46 Lymph % (Auto) 8.0 % 04/08/23 18:46 [place] % (Auto) 7.9 % 04/08/23 18:46 Eos % (Auto) 0.4 % 04/08/23 18:46 Baso % (Auto) 0.1 % 04/08/23 18:46 Neut # (Auto) 7.65 K/uL (1.40-6.50) H 04/08/23 18:46 Lymph # (Auto) 0.74 K/uL (1.20-3.40) L 04/08/23 18:46 [place] # (Auto) 0.73 K/uL (0.11-0.59) H 04/08/23 18:46 Eos # (Auto) 0.04 K/uL (0.00-0.50) 04/08/23 18:46 Baso # (Auto) 0.01 K/uL (0.00-0.20) 04/08/23 18:46 Immature Gran # (Auto) 0.06 K/uL (0.01-0.20) 04/08/23 18:46 Sodium 134 mmol/L (136-145) L 04/08/23 18:46 Potassium 3.6 mmol/L (3.5-5.1) 04/08/23 18:46 Chloride 101 mmol/L (98-107) 04/08/23 18:46 Carbon Dioxide 25 mmol/L (21-32) 04/08/23 18:46 Anion Gap 8 (3-11) 04/08/23 18:46 BUN 19 mg/dl (6-23) 04/08/23 18:46 Creatinine 1.38 mg/dl (0.6-1.4) 04/08/23 18:46 Est Cr Clr Drug Dosing 55.1 ml/min 04/08/23 18:46 Est GFR ( Amer) 61.7 ml/min 04/08/23 18:46 Est GFR (Non-Af Amer) 53.3 ml/min 04/08/23 18:46 BUN/Creatinine Ratio 13.8 (10-20) 04/08/23 18:46 Glucose 134 mg/dl (70-99(Fasting)) H 04/08/23 18:46 Lactate 1.8 mmol/L (0.4-2.0) 04/08/23 18:46 Calcium 9.3 mg/dl (8.6-10.3) 04/08/23 18:46 Total Bilirubin 0.8 mg/dl (0.2-1.0) 04/08/23 18:46 AST 20 U/L (13-39) 04/08/23 18:46 ALT 22 U/L (7-52) 04/08/23 18:46 Alkaline Phosphatase 61 U/L (34-104) 04/08/23 18:46 Total Protein 6.9 gm/dl (6.0-8.3) 04/08/23 18:46 Albumin 4.2 gm/dl (3.4-5.0) 04/08/23 18:46 Globulin 2.7 gm/dl (2.5-4.0) 04/08/23 18:46 Albumin/Globulin Ratio 1.6 (0.9-2) 04/08/23 18:46 Code Status & VTE Plan VTE Prophylaxis Plan VTE Prophylaxis will be ordered: Yes
[2023-04-08] MEDS ORDERED: ONDANSETRON INJ 2 MG/ML 2 ML VIAL IV PRN (22:05)
[2023-04-08] MEDS ORDERED: ACETAMINOPHEN 325 MG TAB PO PRN (22:05)
[2023-04-08] MEDS ORDERED: oxyCODONE HCL IR 5 MG TAB (IMMEDIATE RELEASE) PO PRN (22:05)
[2023-04-08] MEDS: SODIUM CHLORIDE 0.9% 1,000 ML IV SCH (22:21)
--- NOTE | 2023-04-08 22:38 | Emergency Department Note ---
History of Present Illness General Chief Complaint: Kidney Stone Stated Complaint: KIDNEY STONE, PAIN Time Seen by Provider: 04/08/23 18:41 History of Present Illness Provider Complaint: flank pain Onset (ago): 5 day(s) Pain Consistency: intermittent Location: L flank Migration to: LLQ Severity: severe Maximum Pain Intensity: 10 Current Pain Intensity: 9 Quality: + stabbing and + sharp Relieved By: + nothing Exacerbated By: + other (urinating) Context: + history of similar episodes (Recently diagnosed with kidney stones); no foreign travel, no possible food poisoning, no sick contacts, no recent antibiotic use, no recent surgery/procedure or no recent injury Associated Symptoms: + nausea, + vomiting, + constipation, + dysuria and + hematuria; no diarrhea, no fever, no chills, no hematochezia, no melena, no anorexia, no syncope, no headache, no neck pain, no back pain, no chest pain and no numbness Oxycodone not helping with pain Home Medications Medication Instructions Recorded Confirmed Type amlodipine 5 mg tablet (Norvasc) 5 mg PO QAM #30 tabs 04/05/23 04/08/23 Rx oxycodone 5 mg tablet 5 mg PO Q4H PRN pain #10 tabs 04/05/23 04/08/23 Rx phenazopyridine 200 mg tablet 200 mg PO TID PRN pain #30 tabs 04/05/23 04/08/23 Rx (Pyridium) tamsulosin 0.4 mg capsule 0.4 mg PO QAM #30 caps 04/05/23 04/08/23 Rx Allergies Allergy/AdvReac Type Severity Reaction Status Date / Time No Known Allergies Allergy Verified 04/08/23 19:58 Past Med/Surg History Medical History Ureterolithiasis Surgical History H/O nasal septoplasty History of hydrocelectomy Hx of colonoscopy Family History Mother Alzheimer disease Father Breast cancer Brother Cancer Lung cancer Social History Smoking Status: Never smoker Hx Alcohol Use: No Hx Substance Use: No Preferred Language: Trinidadian Communication Ability: Effective Administrative Coordinator Required: No Beliefs That Will Affect Care: None Current Living Situation: Spouse Feels Safe at Home: Yes Safety Concerns: Feels Safe At This Time Assistive Devices: None Physical Exam 2 Vital Signs: Vital Signs - 24 hr 04/08/23 18:31 04/08/23 18:45 04/08/23 18:47 Temperature 36.6 C Temperature Source Temporal Artery Sc an Pulse Rate 112 H 89 Pulse Rate [Right Finger] 92 H Pulse Rhythm Respiratory Rate 20 12 Respiratory Effort / Characteristics Non-Labored Respiratory Depth Normal Respiratory Patter n Blood Pressure 106/73 Blood Pressure [Le ft Arm] 154/91 H Blood Pressure Sandra n 84 Blood Pressure Sandra n [Left Arm] 112 Pulse Oximetry 96 97 Oxygen Delivery Me thod Room Air Room Air Oxygen Flow Rate Sepsis Recent Feve r Within 48 Hours No Sepsis New/Unexpla ined Change in Men chiki Status No Sepsis Action Take n by Nursing No Action Required 04/08/23 18:48 04/08/23 20:06 04/08/23 20:28 Temperature Temperature Source Pulse Rate 84 Pulse Rate [Right Finger] 75 78 Pulse Rhythm Regular Respiratory Rate 19 16 18 Respiratory Effort / Characteristics Non-Labored Sponta neous Non-Labored Sponta neous Respiratory Depth Normal Normal Respiratory Patter n Regular Blood Pressure Blood Pressure [Le ft Arm] 155/81 H 147/85 H Blood Pressure Sandra n Blood Pressure Sandra n [Left Arm] 105 105 Pulse Oximetry 96 95 95 Oxygen Delivery Me thod Room Air Room Air Nasal Cannula Oxygen Flow Rate 2 Sepsis Recent Feve r Within 48 Hours Sepsis New/Unexpla ined Change in Men chiki Status Sepsis Action Take n by Nursing Physical Exam: Physical Exam GENERAL: She is oriented to person, place, and time. She appears well-developed and well-nourished. She does not appear distressed. HENT: Exam performed. -Head: Normocephalic and atraumatic. -Right Ear: External ear normal. No mastoid erythema -Left Ear: External ear normal. No mastoid erythema -Mouth/Throat: The oropharynx is clear and moist. No trismus in the jaw. No dental abscesses or uvula swelling. No oropharyngeal exudate or tonsillar abscesses. EYES: Conjunctivae and EOM are normal.Right eye exhibits no discharge. Left eye exhibits no discharge. No scleral icterus. NECK: Normal range of motion. Neck supple. No JVD present. No tracheal deviation and normal range of motion present. CV: Normal rate, regular rhythm, normal heart sounds and intact distal pulses. There is no peripheral edema. Palpable radial pulses bue. PULM/CHEST: Effort normal and breath sounds normal. No respiratory distress. No stridor. She has no wheezes. She has no rales. -Chest Wall: She exhibits no tenderness. ABD: The abdomen is soft. Bowel sounds are normal. She has no distension. No mass is present. There is tenderness to palpation to the left lower quadrant. There is no rebound, no guarding, no Fung's sign and no tenderness at McBurney's point. Rovsig negative. Left-sided CVA tenderness. MUSC/SKEL: Normal range of motion. There is no peripheral edema, tenderness or deformity. NEURO: Motor and sensation grossly intact. SKIN: Skin is warm and dry. She is not diaphoretic. PSYCH: She has a normal mood and affect. Behavior is normal. Judgment and thought content normal. Course Course 1840: The patient was evaluated in room A4A. A complete history and physical exam was performed Administered Medications Sodium Chloride (Nss) 1,000 mls @ 125 mls/hr IV .Q8H LIBRADO Stop: 05/08/23 21:14 Last Admin: 04/08/23 22:21 Dose: 125 mls/hr Documented By: GLADYS Discontinued Medications Hydromorphone HCl (Hydromorphone Inj 0.5 Mg/0.5 Ml Syr) 0.5 mg IV NOW STA Stop: 04/08/23 18:35 Last Admin: 04/08/23 18:44 Dose: 0.5 mg Documented By: GLADYS Hydromorphone HCl (Hydromorphone Inj 0.5 Mg/0.5 Ml Syr) 0.5 mg IV NOW STA Stop: 04/08/23 20:55 Last Admin: 04/08/23 21:07 Dose: 0.5 mg Documented By: GLADYS Sodium Chloride (Nss) 1,000 mls @ 999 mls/hr IV .Q1H1M STA Stop: 04/08/23 19:34 Last Infusion: 04/08/23 19:48 Dose: Infused Documented By: Admin: 04/08/23 18:43 Dose: 999 mls/hr Documented By: GLADYS Ketorolac Tromethamine (Ketorolac Tromethamine 15 Mg/Ml Vial) 15 mg IV NOW STA Stop: 04/08/23 18:45 Last Admin: 04/08/23 19:04 Dose: 15 mg Documented By: GLADYS Ondansetron HCl (Ondansetron Inj 2 Mg/Ml 2 Ml Vial) 4 mg IV NOW STA Stop: 04/08/23 18:35 Last Admin: 04/08/23 18:43 Dose: 4 mg Documented By: GLADYS Medical Decision Making Medical Records Attestation: I reviewed the patient's medical records. External medical records reviewed. Patient was seen in the emergency department on September 01, 2022 which showed left-sided kidney stone 8 mm with hydronephrosis Laboratory Data Attestation: I reviewed the patient's lab results. 04/08/23 18:46 04/08/23 18:46 Lab Results 04/08/23 04/08/23 Range/Units 18:46 20:44 WBC 9.23 (4.8-10.8) K/ul RBC 5.07 (4.70-6.10) M/uL Hgb 15.0 (14.0-18.0) g/dl Hct 42.8 (42.0-52.0) % MCV 84.4 (80.0-100.0) fL MCH 29.6 (25.0-34.0) pg MCHC 35.0 (32.0-36.0) g/dL RDW Std Deviation 37.7 (36.4-46.3) fL RDW Coeff of Adelfo 12.5 (11.5-14.5) % Plt Count 200 (130-400) K/uL MPV 8.8 L (9.4-12.4) fL Immature Gran % (Auto) 0.7 % Neut % (Auto) 82.9 % Lymph % (Auto) 8.0 % [place] % (Auto) 7.9 % Eos % (Auto) 0.4 % Baso % (Auto) 0.1 % Neut # (Auto) 7.65 H (1.40-6.50) K/uL Lymph # (Auto) 0.74 L (1.20-3.40) K/uL [place] # (Auto) 0.73 H (0.11-0.59) K/uL Eos # (Auto) 0.04 (0.00-0.50) K/uL Baso # (Auto) 0.01 (0.00-0.20) K/uL Immature Gran # (Auto) 0.06 (0.01-0.20) K/uL Sodium 134 L (136-145) mmol/L Potassium 3.6 (3.5-5.1) mmol/L Chloride 101 (98-107) mmol/L Carbon Dioxide 25 (21-32) mmol/L Anion Gap 8 (3-11) BUN 19 (6-23) mg/dl Creatinine 1.38 (0.6-1.4) mg/dl Est Cr Clr Drug Dosing 55.1 ml/min Est GFR ( Amer) 61.7 ml/min Est GFR (Non-Af Amer) 53.3 ml/min BUN/Creatinine Ratio 13.8 (10-20) Glucose 134 H (70-99(Fasting)) mg/dl Lactate 1.8 (0.4-2.0) mmol/L Calcium 9.3 (8.6-10.3) mg/dl Total Bilirubin 0.8 (0.2-1.0) mg/dl AST 20 (13-39) U/L ALT 22 (7-52) U/L Alkaline Phosphatase 61 (34-104) U/L Total Protein 6.9 (6.0-8.3) gm/dl Albumin 4.2 (3.4-5.0) gm/dl Globulin 2.7 (2.5-4.0) gm/dl Albumin/Globulin Ratio 1.6 (0.9-2) SARS-CoV-2 (PCR) POSITIVE A* (Negative) MDM Narrative Vital signs stable. Labs within normal limits. Patient will be admitted to the [facility] team for pain control and bowel evaluation by urology for stone removal. Impression & Plan Renal colic on left side, Nephrolithiasis Discharge Plan Visit Data Chief Complaint: Kidney Stone Stated Complaint: KIDNEY STONE, PAIN ED Provider: Duc Gómez Discharge Problem: Renal colic on left side, Nephrolithiasis Patient Disposition: Admitted As Inpatient Discharge Instructions Interventions: ED Discharge Assessment Last Done: 04/08/23 22:06
[2023-04-09] MEDS: HYDROmorphone INJ 0.5 MG/0.5 ML SYR IV PRN ×3 (01:46→08:34)
[2023-04-09] MEDS: SODIUM CHLORIDE 0.9% 1,000 ML IV SCH ×3 (05:54→21:50)
[2023-04-09] MEDS: amLODIPine BESYLATE 5 MG TAB PO SCH (08:00)
[2023-04-09] MEDS: TAMSULOSIN HCL 0.4 MG CAP PO SCH (08:00)
--- NOTE | 2023-04-09 10:42 | Urology Consultation ---
Date of Consultation April 09, 2023 Assessment & Plan (1) Renal colic on left side: (2) Ureterolithiasis: (3) COVID-19: Plan 63yo/M admitted with intractable left flank pain secondary to an obstructing proximal left ureteral stone Patient afebrile, VSS. Labsnormal creatinine, no leukocytosis Urine culture from 04/05/[address] imaging 04/03/23 reviewed- notable for an obstructing 8 mm left proximal ureter stone with mild left hydronephrosis We discussed option for acute stone management with cystoscopy and ureteral stent placement. Ureteral stents were discussed as well as postoperative issues and pain management. Discussed possible associated risks of stent discomfort, hematuria, infection, injury to the urinary tract, inability to place the stent, anesthesia risks. Also discussed that he will still need a second procedure for stone treatment. Discussed option for stone management as an outpatient this Sunday04/13/23 as scheduled since there is no evidence of UTI or acute renal failure at this point. Risks and benefits of each were discussed. All questions were answered. After considering options, he elects to proceed with cystoscopy, left retrograde pyelogram, left ureteral stent placement today. Risks and benefits were discussed as per consent. Keep NPO. Continue supportive care and pain management as needed. Will cover with Ancef preoperatively. Patient agreeable to above plan, all questions were answered. Urology will follow. Supervising Physician Co-Signing Physician Notes Discussed patient with RICHAR. Agree with plan. Explained why we do not treat the stone in the acute setting and why we offered a stent. He agreed. Consent obtained. Patient marked History of Present Illness Attending Physician: Vanessa Yates MD History of Present Illness 63-year-old male who was hospitalized last week for pain secondary to a left ureteral stone and was also diagnosed with COVID. He was discharged 04/05/23 with plans for outpatient stone treatment with Dr. Mills on 04/13/23. He returned to the ED 04/08/23 due to severe pain. He reported severe pain and nausea since discharge last week despite pain medication. Also reported constipation. ED course: IVF, Zofran, Dilaudid, Toradol. Admitted to medicine service. Chart review- Afebrile, hemodynamically stable. Labs reviewed -no leukocytosis and normal renal function. Urine culture 04/05/23 negative Blood cultures 04/03/[address] A/P 04/03/23 without contrast reviewed and notable for an obstructing 8 mm calculus in the left proximal ureter with mild left hydroureteronephrosis; no additional calculi identified bilaterally. Patient examined at bedside this AM. Awake, resting in bed on arrival. No acute distress. On COVID precautions. Still with severe left sided pain. Denies fever or chills. Has been NPO. Allergies Allergy/AdvReac Type Severity Reaction Status Date / Time No Known Allergies Allergy Verified 04/08/23 19:58 Home Medications Medication Instructions Recorded Confirmed Type amlodipine 5 mg tablet (Norvasc) 5 mg PO QAM #30 tabs 04/05/23 04/08/23 Rx oxycodone 5 mg tablet 5 mg PO Q4H PRN pain #10 tabs 04/05/23 04/08/23 Rx phenazopyridine 200 mg tablet 200 mg PO TID PRN pain #30 tabs 04/05/23 04/08/23 Rx (Pyridium) tamsulosin 0.4 mg capsule 0.4 mg PO QAM #30 caps 04/05/23 04/08/23 Rx Patient History Medical History Ureterolithiasis Surgical History H/O nasal septoplasty History of hydrocelectomy Hx of colonoscopy Family History Mother Alzheimer disease Father Breast cancer Brother Cancer Lung cancer Social History Smoking Status: Never smoker Hx Alcohol Use: No Hx Substance Use: No Preferred Language: Chilean Communication Ability: Effective Sales Systems Engineer Required: No Beliefs That Will Affect Care: None Current Living Situation: Spouse Feels Safe at Home: Yes Safety Concerns: Feels Safe At This Time Assistive Devices: None Review of Systems Review of Systems: All systems reviewed & are unremarkable except as noted in HPI & below Physical Exam Constitutional: no acute distress and + uncomfortable Neck: normal visual inspection Respiratory: no respiratory distress and no labored breathing Gastrointestinal (Abdomen): Inspection/Auscultation: abdomen normal to inspection Musculoskeletal: Head/Neck/Chest: normocephalic Neurologic: moves all extremities and awake Psychiatric: Orientation: alert and oriented x 3 Results & Data Vital Signs (Past 12 Hours) Vital Signs Temp Pulse Pulse Pulse Resp BP BP 04/09/23 08:38 68 04/09/23 08:00 78 17 145/84 H 04/09/23 07:00 65 19 04/09/23 06:18 81 16 143/80 H 04/09/23 00:16 36.8 C 66 16 148/82 H 04/08/23 23:50 72 04/08/23 22:21 62 15 155/86 H Pulse Ox O2 Del Method O2 Flow Rate 04/09/23 08:38 04/09/23 08:00 95 04/09/23 07:00 94 04/09/23 06:18 94 Room Air 04/09/23 00:16 95 Room Air 04/08/23 23:50 04/08/23 22:21 96 Room Air 2 PG Care Time/CCT Total # of Minutes Spent Total Time Spent with Patient: Total time spent is greater than 50% in coordination of care (as documented) at patient's floor/unit and/or counseling patient: Coding Level of Care Code 09866 INT INP/OBS CARE 2/55MIN Diagnoses Renal colic on left side N23 Ureterolithiasis N20.1 COVID-19 U07.1
[2023-04-09] MEDS ORDERED: ceFAZolin 2000MG 2,000 MG/15 ML SYR IV ONE (12:00)
[2023-04-09] MEDS ORDERED: ceFAZolin 2,000 MG/15 ML IV PUSH IV ONE (14:41)
[2023-04-09] MEDS ORDERED: KETOROLAC 30 MG/ML VIAL ONE (15:09)
[2023-04-09] MEDS ORDERED: PROPOFOL IV EMULSION 10 MG/ML 20 ML VIAL IV ONE (15:09)
[2023-04-09] MEDS ORDERED: ePHEDrine sulfate 50 MG/ML AMP IV PRN (15:14)
[2023-04-09] MEDS ORDERED: ATROPINE SULFATE 0.1 MG/ML 10ML SYR IV PRN (15:14)
[2023-04-09] MEDS ORDERED: fentaNYL citrate PF 100 MCG/2 ML VIAL IV PRN (15:14)
[2023-04-09] MEDS ORDERED: ONDANSETRON INJ 2 MG/ML 2 ML VIAL IV PRN (15:14)
--- NOTE | 2023-04-09 15:14 | Anesthesiology Consultation ---
Date of Service April 09, 2023 Assessment & Plan Chart Review Chart Review: Acceptable Risk for Surgery Consults Requested none ASA ASA2 Proposed Anesthesia Anesthesia Type: MAC Risk / Benefits Reviewed With: PT / POA / Parent / Guardian, Accepts Plan and Informed Consent Obtained History Surgery Operation Date: 04/09/23 12:15 Proposed Procedures p Cystoscopy, Left Retrograde Pyelogram Stent - Luis Fernando Fisher MD Height/Weight Height: 5 ft 10 in Weight: 86.7 kg Allergies Allergy/AdvReac Type Severity Reaction Status Date / Time No Known Allergies Allergy Verified 04/08/23 19:58 Medications Home Medications Medication Instructions Recorded Confirmed Last Taken amlodipine 5 mg tablet (Norvasc) 5 mg PO QAM #30 tabs 04/05/23 04/08/23 Unknown oxycodone 5 mg tablet 5 mg PO Q4H PRN pain #10 tabs 04/05/23 04/08/23 Unknown phenazopyridine 200 mg tablet 200 mg PO TID PRN pain #30 tabs 04/05/23 04/08/23 Unknown (Pyridium) tamsulosin 0.4 mg capsule 0.4 mg PO QAM #30 caps 04/05/23 04/08/23 Unknown Active Medications Generic Name Dose Route Start Last Admin Trade Name Freq PRN Reason Stop Dose Admin Amlodipine Besylate 5 mg 04/09/23 09:00 04/09/23 08:00 Amlodipine Besylate 5 Mg Tab PO 05/09/23 08:59 5 mg QAM LIBRADO Administration Hydromorphone HCl 0.5 mg 04/08/23 21:08 04/09/23 08:34 Hydromorphone Inj 0.5 Mg/0.5 Ml Syr IV 04/22/23 21:07 0.5 mg Q3H PRN Administration Pain Sodium Chloride 1,000 mls @ 125 mls/hr 04/08/23 21:15 04/09/23 13:48 Nss IV 05/08/23 21:14 125 mls/hr .Q8H LIBRADO Administration Lactated Ringer's 1,000 mls @ 15 mls/hr 04/09/23 15:15 04/09/23 15:11 Lr IV 05/09/23 15:14 15 mls/hr .Q24H LIBRADO Administration Tamsulosin HCl 0.4 mg 04/09/23 09:00 04/09/23 08:00 Tamsulosin Hcl 0.4 Mg Cap PO 05/09/23 08:59 0.4 mg QAM LIBRADO Administration NPO Date Last Intake of Fluids: 04/08/23 Time Last Intake of Fluids: 22:00 Date Last Intake of Solids: 04/08/23 Time Last Intake of Solids: 16:00 Past Medical History Medical History Ureterolithiasis Exercise / Class Metabolic Activity II 4-5 Yardwork/Stairs/Walk up hill Past Family History Family History Mother Alzheimer disease Father Breast cancer Brother Cancer Lung cancer Past Surgical History Surgical History H/O nasal septoplasty History of hydrocelectomy Hx of colonoscopy Past Anesthesia History No Hx of Anesthesia Complications and No Family Hx of Anesthesia Complications History of PONV No Hx of PONV and No Hx of Motion Sickness Social History Smoking Status: Never smoker Hx Alcohol Use: No Hx Substance Use: No Physical Exam Vital Signs Last Vital Signs Temp 97.7 F 04/09/23 15:06 Pulse 82 04/09/23 15:06 Resp 20 04/09/23 15:06 BP 149/81 H 04/09/23 15:06 Pulse Ox 96 04/09/23 15:06 O2 Del Method Room Air 04/09/23 15:06 O2 Flow Rate 2 04/08/23 22:21 ENMT Mouth: no dentition abnormality Thyromental Distance: > or= 3.5 Finger Breadths Mallampati Class: II Neck normal visual inspection Respiratory normal respiratory effort Auscultation: lungs clear to auscultation bilaterally Cardiovascular Rate/Rhythm: regular rate and regular rhythm Testing Laboratory Results 04/08/23 18:46 04/08/23 18:46
[2023-04-09] MEDS ORDERED: LACTATED RINGER'S 1,000 ML IV SCH (15:15)
--- NOTE | 2023-04-09 15:41 | Operative Report ---
PG Post Operative Report Pre & Post Diagnosis Operation Date: 04/09/23 12:15 Pre-Op Diagnosis: Renal colic on left side, Ureterolithiasis Post-Op Diagnosis: Renal colic on left side, Ureterolithiasis I identified the patient and participated in the time-out.: Yes Procedure Operation Date: 04/09/23 12:15 Actual Procedures p Cystoscopy, Left Retrograde Pyelogram with radiograph interpretation, Left ureteral Stent insertion(Left) - Luis Fernando Fisher MD Surgeon Luis Fernando Fisher MD Processing Clerk None Estimated Blood Loss 0 Findings Consistent with Post-Op Diagnosis Retrograde showed no extravasation. Stent is in appropriate position. Mild hydronephrosis. Specimens None Drains 6 Greenlandic by 26 cm left ureteral stent Anesthesia Type MAC Indications 63-year-old male who is COVID-positive with a left proximal obstructing ureteral calculus. He was discharged last week on medical expulsive therapy with plans for ureteroscopy later this week. We had tried to avoid an elective procedure given that he was COVID-positive. He came back to the hospital with intractable pain and decision was made to take him to the OR for cystoscopy and left stent placement today. Description of Procedure After informed consent was obtained, the patient was transported operative suite. MAC anesthesia was induced. The patient was placed in dorsal lithotomy position prepped and draped in a sterile fashion. They received preoperative Ancef for antibiotic prophylaxis. An appropriate surgical timeout was performed. A 22 Greenlandic rigid scope was inserted per urethra into the bladder. Griffin cystoscopy revealed no stones or lesions. I turned my attention the left ureteral orifice and intubated this with a 5 Greenlandic open-ended catheter. A left retrograde pyelogram was shot which showed mild. A sensor wire was advanced into the kidney and confirmed fluoroscopically. A 6 Greenlandic by 26 cm left ureteral stent was deployed with a good proximal coil in the renal pelvis and a good distal coil noted in the bladder. These were confirmed fluoroscopically and under direct visualization, respectively. The bladder was emptied and the scope was removed. This concluded the end of the case. All counts were correct at the end of the case. I was present, scrubbed, and actively participated for the entirety of the procedure. I attest to the content of the Intraoperative Record and any orders documented therein. Any exceptions are noted below.
--- NOTE | 2023-04-09 16:02 | Anesthesiology Progress Note ---
Date of Service April 09, 2023 Anesthesia Post Procedure Vital Signs Vital Signs: Temp Pulse Pulse Pulse Resp BP BP 04/09/23 15:50 88 14 133/80 04/09/23 15:43 97.0 F L 85 16 136/83 04/09/23 15:06 97.7 F 82 20 149/81 H 04/09/23 14:29 98.4 F 80 16 141/82 H 04/09/23 12:26 97.7 F 66 16 147/77 H 04/09/23 08:38 68 04/09/23 08:00 78 17 145/84 H 04/09/23 07:00 65 19 04/09/23 06:18 81 16 143/80 H 04/09/23 00:16 98.2 F 66 16 148/82 H 04/08/23 23:50 72 04/08/23 22:21 62 15 155/86 H 04/08/23 20:28 78 18 147/85 H 04/08/23 20:06 75 16 155/81 H 04/08/23 18:48 84 19 04/08/23 18:47 92 H 12 154/91 H 04/08/23 18:45 89 04/08/23 18:31 97.9 F 112 H 20 106/73 Pulse Ox O2 Del Method O2 Flow Rate 04/09/23 15:50 95 Oxymask 2 04/09/23 15:43 94 Oxymask 4 04/09/23 15:06 96 Room Air 04/09/23 14:29 94 Room Air 04/09/23 12:26 97 Room Air 04/09/23 08:38 04/09/23 08:00 95 04/09/23 07:00 94 04/09/23 06:18 94 Room Air 04/09/23 00:16 95 Room Air 04/08/23 23:50 04/08/23 22:21 96 Room Air 2 04/08/23 20:28 95 Nasal Cannula 2 04/08/23 20:06 95 Room Air 04/08/23 18:48 96 Room Air 04/08/23 18:47 97 Room Air 04/08/23 18:45 04/08/23 18:31 96 Room Air Pain Intensity Left Flank: Pain Intensity: 2 Transfer of Care Handoff Completed per policy Notes Mental Status: alert / awake / arousable and participated in evaluation Patient Amnestic to Procedure: Yes Nausea / Vomiting: adequately controlled Pain: adequately controlled Airway Patency, RR, SpO2: stable & adequate BP & HR: stable & adequate Hydration State: stable & adequate Anesthetic Complications: no major complications apparent and Pt Satisfied with anesthetic care
--- NOTE | 2023-04-09 16:10 | Fluoroscopy Report ---
FL retrograde includes kub CLINICAL HISTORY: RETROGRADE, STENT COMPARISON STUDY: Abdomen and pelvis CT 04/03/2023. FLUOROSCOPY TIME: 8 seconds. FLUOROSCOPY IMAGES: 3 Ka,r: 2.0 mGy FINDINGS: Retrograde opacification of the left renal collecting system followed by placement of a lef t ureteral stent. Only the proximal portion of the stent is identified but appears in good position. IMPRESSION: Fluoroscopic assistance as above. ACT 112: Negative or not required by law. Electronically signed by: Oscar Sparks M.D. 04/09/2023 4:08 PM
[2023-04-09] MEDS ORDERED: MAGNESIUM HYDROXIDE SUSP 30 ML UDC PO ONE (16:38)
[2023-04-09] MEDS ORDERED: hydrALAZINE HCL 20 MG/ML VIAL IV PRN ×2 (16:40→16:50)
--- NOTE | 2023-04-09 16:58 | Hospitalist Progress Note ---
Date of Service April 09, 2023 Assessment & Plan (1) Renal colic on left side: Plan: 63-year-old male with past med significant for hypertension who was recently in the hospital for left ureteral stone and was diagnosed with COVID and was discharged to follow as outpatient comes back with severe left flank pain. Patient says since discharge he is in a lot of pain. Currently seems to be in extreme pain. Complains of shortness of breath and nausea with pain. Afebrile. No cough no headache no chest pain. He states he has some blood in the urine. No pain while micturating. Somewhat constipated. Renal colic on left side 8 mm obstructing calculus in the left proximal ureter with mild left hydroureteronephrosis on the CAT scan done in Apr 03 Pain has been worse since discharge from the hospital Has not been able to eat or drink anything at home for the last few days Bowel is not moved for the last few days without any abdominal distention Has been n.p.o. n.p.o. IV fluids,IV Dilaudid and Toradol as needed Continue Flomax Appreciate urology input and recommendation for stent placement in the afternoon Hypertension On amlodipine If the blood pressure remains high will give hydralazine as needed COVID COVID precautions DVT prophylaxis SCDs Disposition medical floor Discussed with the patient in detail Is a status post cystoscopy, left retrograde pyelogram and left ureteral stent insertion on 04/09/2023 The patient was seen and examined following the procedure Remains stable-likely discharge tomorrow morning Discussed with the in detailed Admission and Anticipated Discharge Date Admission Date: April 08, 2023 Subjective 04/09/2023 The patient was seen and examined in emergency room He is back with increasing pain in the left side of the abdomen associated with nausea and vomiting He has not been able to eat or drink anything at home for the last few days No fever and or chills He was seen by the urologist and will have stent placement this afternoon Review of Systems Review of Systems: All systems reviewed and are unremarkable except as noted below Physical Exam Physical Exam: Lying in bed with acute distress due to pain in abdomen Constitutional: well developed, well nourished and + ill appearing Eyes: PERRL, conjunctivae normal, anicteric sclerae ENMT: external ear and nose normal, oropharynx normal Neck: trachea midline, no thyromegaly Respiratory: no respiratory distress Auscultation: lungs clear to auscultation bilaterally Cardiovascular: Rate/Rhythm: regular rate and regular rhythm; not tachycardic Heart Sounds: normal S1 and normal S2; no murmur Extremities: no edema Gastrointestinal (Abdomen): Inspection/Auscultation: normal bowel sounds; abdomen not distended Percussion/Palpation: abdomen soft; abdomen nontender Musculoskeletal: No acute arthritis involving any of the joint Neurologic: normal touch/pain/proprioception and moves all extremities; no focal motor deficits Lymphatic: no cervical or axillary lymphadenopathy Results & Data Results & Data Vital Signs (Past 12 Hours) Vital Signs Temp Pulse Pulse Pulse Resp BP BP 04/09/23 16:37 36.8 C 72 18 151/82 H 04/09/23 16:10 37.2 C 77 13 160/88 H 04/09/23 16:00 37.2 C 71 18 156/89 H 04/09/23 15:50 88 14 133/80 04/09/23 15:43 36.1 C L 85 16 136/83 04/09/23 15:06 36.5 C 82 20 149/81 H 04/09/23 14:29 36.9 C 80 16 141/82 H 04/09/23 12:26 36.5 C 66 16 147/77 H 04/09/23 08:38 68 04/09/23 08:00 78 17 145/84 H 04/09/23 07:00 65 19 04/09/23 06:18 81 16 143/80 H Pulse Ox O2 Del Method O2 Flow Rate 04/09/23 16:37 95 Room Air 04/09/23 16:10 96 Room Air 04/09/23 16:00 94 Room Air 04/09/23 15:50 95 Oxymask 2 04/09/23 15:43 94 Oxymask 4 04/09/23 15:06 96 Room Air 04/09/23 14:29 94 Room Air 04/09/23 12:26 97 Room Air 04/09/23 08:38 04/09/23 08:00 95 04/09/23 07:00 94 04/09/23 06:18 94 Room Air Laboratory Results Short CBC 04/08/23 Range/Units 18:46 WBC 9.23 (4.8-10.8) K/ul Hgb 15.0 (14.0-18.0) g/dl Hct 42.8 (42.0-52.0) % Plt Count 200 (130-400) K/uL BMP 04/08/23 18:46 Sodium 134 L Potassium 3.6 Chloride 101 Carbon Dioxide 25 BUN 19 Creatinine 1.38 Glucose 134 H Calcium 9.3 Liver Function 04/08/23 Range/Units 18:46 Total Bilirubin 0.8 (0.2-1.0) mg/dl AST 20 (13-39) U/L ALT 22 (7-52) U/L Alkaline Phosphatase 61 (34-104) U/L Albumin 4.2 (3.4-5.0) gm/dl Medications Administered Current Inpatient Medications Acetaminophen (Acetaminophen 325 Mg Tab) 650 mg PO Q4H PRN PRN Reason: pain/fever Stop: 05/08/23 22:04 Amlodipine Besylate (Amlodipine Besylate 5 Mg Tab) 5 mg PO QAM LIBRADO Stop: 05/09/23 08:59 Last Admin: 04/09/23 08:00 Dose: 5 mg Atropine Sulfate (Atropine Sulfate 0.1 Mg/Ml 10ml Syr) 0.5 mg IV Q1M PRN PRN Reason: PACU Use-HR<40 &/or Bradycardi Stop: 04/09/23 23:14 Ephedrine Sulfate (Ephedrine Sulfate 50 Mg/Ml Amp) 5 mg IV Q5M PRN PRN Reason: PACU Use Only-SBP<90 mmHg Stop: 04/09/23 23:14 Fentanyl Citrate (Fentanyl Citrate Pf 100 Mcg/2 Ml Vial) 25 mcg IV Q5M PRN PRN Reason: PACU Use Only-Pain Stop: 04/09/23 23:14 Hydralazine HCl (Hydralazine Hcl 20 Mg/Ml Vial) 10 mg IV Q6H PRN PRN Reason: Blood Pressure - High Stop: 05/09/23 16:39 Hydromorphone HCl (Hydromorphone Inj 0.5 Mg/0.5 Ml Syr) 0.5 mg IV Q3H PRN PRN Reason: Pain Stop: 04/22/23 21:07 Last Admin: 04/09/23 08:34 Dose: 0.5 mg Sodium Chloride (Nss) 1,000 mls @ 125 mls/hr IV .Q8H LIBRADO Stop: 05/08/23 21:14 Last Admin: 04/09/23 13:48 Dose: 125 mls/hr Lactated Ringer's (Lr) 1,000 mls @ 15 mls/hr IV .Q24H LIBRADO Stop: 05/09/23 15:14 Last Admin: 04/09/23 15:11 Dose: 15 mls/hr Ketorolac Tromethamine (Ketorolac Tromethamine 15 Mg/Ml Vial) 15 mg IV Q6H PRN PRN Reason: Pain Stop: 04/13/23 21:07 Ondansetron HCl (Ondansetron Inj 2 Mg/Ml 2 Ml Vial) 4 mg IV Q6H PRN PRN Reason: Nausea Stop: 05/08/23 22:04 Ondansetron HCl (Ondansetron Inj 2 Mg/Ml 2 Ml Vial) 4 mg IV ONCE PRN PRN Reason: PACU Use Only-Nausea/Vomiting Stop: 04/09/23 23:14 Oxycodone HCl (Oxycodone Hcl Ir 5 Mg Tab (Immediate Release)) 5 mg PO Q4H PRN PRN Reason: pain Stop: 04/22/23 22:04 Tamsulosin HCl (Tamsulosin Hcl 0.4 Mg Cap) 0.4 mg PO QAM [facility] Stop: 05/09/23 08:59 Last Admin: 04/09/23 08:00 Dose: 0.4 mg
[2023-04-10] MEDS: SODIUM CHLORIDE 0.9% 1,000 ML IV SCH (05:37)
[2023-04-10 07:37] LABS: Basophils # (auto) 0.02 K/uL (0.00-0.20); Basophils % (auto) 0.3 %; Eosinophils # (auto) 0.14 K/uL (0.00-0.50); Eosinophils % (auto) 2.3 %; Immature Granulocytes # (auto) 0.02 K/uL (0.01-0.20); Immature Granulocytes % (auto) 0.3 %; Lymphocytes # (auto) 0.64 K/uL (1.20-3.40); Lymphocytes % (auto) 10.7 %; Mean Corpuscular Hemoglobin 29.6 pg (25.0-34.0); Mean Corpuscular Hgb Conc 34.2 g/dL (32.0-36.0); Mean Corpuscular Volume 86.6 fL (80.0-100.0); Mean Platelet Volume 8.5 fL (9.4-12.4); Monocytes # (auto) 0.48 K/uL (0.11-0.59); Neutrophils # (auto) 4.67 K/uL (1.40-6.50); Neutrophils % (auto) 78.4 %; Platelet Count 179 K/uL (130-400); RDW Coefficient of Variation 12.5 % (11.5-14.5); RDW Standard Deviation 39.6 fL (36.4-46.3); Red Blood Count 4.39 M/uL (4.70-6.10); White Blood Count 5.97 K/ul (4.8-10.8)
[2023-04-10] MEDS: TAMSULOSIN HCL 0.4 MG CAP PO SCH (07:59)
[2023-04-10] MEDS: amLODIPine BESYLATE 5 MG TAB PO SCH (07:59)
[2023-04-10 08:03] LABS: BUN Creatinine Ratio 20.5 (10-20); Creatinine Clr Calc Pharmacy 97.5 ml/min; Est GFR (African American) 109.8 ml/min; Est GFR (Non-African American) 94.7 ml/min; Potassium 3.8 mmol/L (3.5-5.1)
--- NOTE | 2023-04-10 08:09 | Urology Progress Note ---
Date of Service April 10, 2023 Assessment & Plan (1) Ureterolithiasis: (2) Renal colic on left side: (3) S/P ureteral stent placement: Plan 63yo/M admitted with intractable left flank pain secondary to an obstructing proximal left ureteral stone POD #1 s/p cystoscopy and left ureteral stent placement Feeling much better, no reported pain this morning. Afebrile, VSS. Labsnormal creatinine, no leukocytosis Urine culture from 04/05/23 was negative. Okay to d/c from perspective when medically stable. Recommend Tamsulosin, prn Pyridium and prn pain medication for stent management. Will arrange outpatient follow-up with our service for definitive stone treatment. Urology will sign-off. Please contact us with any further questions or concerns. Admission and Anticipated Discharge Date Admission Date: April 08, 2023 Subjective Pt examined at bedside this AM. Awake, resting in bed on arrival. No acute distress. He reports a significant improvement in pain following stent placement. Voiding without issue. Some mild hematuria and dysuria. Denies f/c/n/v. Review of Systems Constitutional: as per Subjective / HPI Genitourinary: + as per Subjective / HPI Physical Exam Constitutional: no acute distress Respiratory: no respiratory distress and no labored breathing Neurologic: awake Psychiatric: A+Ox3, euthymic affect Results & Data Vital Signs (Past 12 Hours) Vital Signs Temp Pulse Resp BP Pulse Ox O2 Del Method 04/10/23 07:19 36.7 C 70 16 170/77 H 92 Room Air 04/10/23 02:37 36.6 C 72 18 155/82 H 96 Room Air 04/09/23 20:22 36.6 C 87 18 153/74 H 93 Room Air PG Care Time/CCT Total # of Minutes Spent Total Time Spent with Patient: Total time spent is greater than 50% in coordination of care (as documented) at patient's floor/unit and/or counseling patient: Coding Level of Care Code 65827 SUB INP/OBS CARE 2/35MIN Diagnoses Ureterolithiasis N20.1 Renal colic on left side N23 S/P ureteral stent placement Z96.0
--- NOTE | 2023-04-10 10:58 | Hospitalist Progress Note ---
Date of Service April 10, 2023 Assessment & Plan (1) Renal colic on left side: Plan: 63-year-old male with past med significant for hypertension who was recently in the hospital for left ureteral stone and was diagnosed with COVID and was discharged to follow as outpatient comes back with severe left flank pain. Patient says since discharge he is in a lot of pain. Currently seems to be in extreme pain. Complains of shortness of breath and nausea with pain. Afebrile. No cough no headache no chest pain. He states he has some blood in the urine. No pain while micturating. Somewhat constipated. Renal colic on left side 8 mm obstructing calculus in the left proximal ureter with mild left hydroureteronephrosis on the CAT scan done in Apr 03 Pain has been worse since discharge from the hospital Has not been able to eat or drink anything at home for the last few days Bowel is not moved for the last few days without any abdominal distention Has been n.p.o. n.p.o. IV fluids,IV Dilaudid and Toradol as needed Continue Flomax Appreciate urology input and recommendation for stent placement in the afternoon Denies any more abdominal pain and was seen by the urologist who recommended that he can go home Denies any fever and or chills, any nausea or vomiting and his bowel movement Hypertension On amlodipine If the blood pressure remains high will give hydralazine as needed Blood pressure noted to be little high at 170/77 Got his amlodipine and will not put any medications now Was advised to check blood pressure 2 times a week and if it is elevated he will need to call his PCP and may need further medication to control the blood press ure COVID COVID precautions DVT prophylaxis SCDs Disposition medical floor Discussed with the patient in detail Is a status post cystoscopy, left retrograde pyelogram and left ureteral stent insertion on 04/09/2023 The patient was seen and examined following the procedure Remains stable-likely discharge tomorrow morning Discussed with the in detailed Admission and Anticipated Discharge Date Admission Date: April 08, 2023 Subjective 04/09/2023 The patient was seen and examined in emergency room He is back with increasing pain in the left side of the abdomen associated with nausea and vomiting He has not been able to eat or drink anything at home for the last few days No fever and or chills He was seen by the urologist and will have stent placement this afternoon 04/10/2023 The patient was seen and examined in medical floor He has been feeling much better and denies any pain following the procedure Minimal hematuria but improving Was seen by the urologist and advised home His bowel is moved Will be discharged home this afternoon Review of Systems Review of Systems: All systems reviewed and are unremarkable except as noted below Physical Exam Physical Exam: Lying in bed without any acute distress Constitutional: well developed, well nourished and + ill appearing Eyes: PERRL, conjunctivae normal, anicteric sclerae ENMT: external ear and nose normal, oropharynx normal Neck: trachea midline, no thyromegaly Respiratory: no respiratory distress Auscultation: lungs clear to auscultation bilaterally Cardiovascular: Rate/Rhythm: regular rate and regular rhythm; not tachycardic Heart Sounds: normal S1 and normal S2; no murmur Extremities: no edema Gastrointestinal (Abdomen): Inspection/Auscultation: normal bowel sounds; abdomen not distended Percussion/Palpation: abdomen soft; abdomen nontender Neurologic: normal touch/pain/proprioception and moves all extremities; no focal motor deficits Lymphatic: no cervical or axillary lymphadenopathy Results & Data Results & Data Vital Signs (Past 12 Hours) Vital Signs Temp Pulse Resp BP Pulse Ox O2 Del Method 04/10/23 07:19 36.7 C 70 16 170/77 H 92 Room Air 04/10/23 02:37 36.6 C 72 18 155/82 H 96 Room Air Laboratory Results Short CBC 04/10/23 Range/Units 06:54 WBC 5.97 (4.8-10.8) K/ul Hgb 13.0 L (14.0-18.0) g/dl Hct 38.0 L (42.0-52.0) % Plt Count 179 (130-400) K/uL BMP 04/10/23 06:54 Sodium 139 Potassium 3.8 Chloride 108 H Carbon Dioxide 25 BUN 16 Creatinine 0.78 D Glucose 155 H Calcium 8.0 L Medications Administered Current Inpatient Medications Acetaminophen (Acetaminophen 325 Mg Tab) 650 mg PO Q4H PRN PRN Reason: pain/fever Stop: 05/08/23 22:04 Amlodipine Besylate (Amlodipine Besylate 5 Mg Tab) 5 mg PO QAM [facility] Stop: 05/09/23 08:59 Last Admin: 04/10/23 07:59 Dose: 5 mg Hydralazine HCl (Hydralazine Hcl 20 Mg/Ml Vial) 10 mg IV Q6H PRN PRN Reason: Blood Pressure - High Stop: 05/09/23 16:39 Hydromorphone HCl (Hydromorphone Inj 0.5 Mg/0.5 Ml Syr) 0.5 mg IV Q3H PRN PRN Reason: Pain Stop: 04/22/23 21:07 Last Admin: 04/09/23 08:34 Dose: 0.5 mg Sodium Chloride (Nss) 1,000 mls @ 125 mls/hr IV .Q8H [facility] Stop: 05/08/23 21:14 Last Admin: 04/10/23 05:37 Dose: 125 mls/hr Lactated Ringer's (Lr) 1,000 mls @ 15 mls/hr IV .Q24H [facility] Stop: 05/09/23 15:14 Last Admin: 04/09/23 15:11 Dose: 15 mls/hr Ketorolac Tromethamine (Ketorolac Tromethamine 15 Mg/Ml Vial) 15 mg IV Q6H PRN PRN Reason: Pain Stop: 04/13/23 21:07 Ondansetron HCl (Ondansetron Inj 2 Mg/Ml 2 Ml Vial) 4 mg IV Q6H PRN PRN Reason: Nausea Stop: 05/08/23 22:04 Oxycodone HCl (Oxycodone Hcl Ir 5 Mg Tab (Immediate Release)) 5 mg PO Q4H PRN PRN Reason: pain Stop: 04/22/23 22:04 Tamsulosin HCl (Tamsulosin Hcl 0.4 Mg Cap) 0.4 mg PO QAM [facility] Stop: 05/09/23 08:59 Last Admin: 04/10/23 07:59 Dose: 0.4 mg
--- NOTE | 2023-04-11 09:17 | Discharge Summary ---
Date of Service April 10, 2023 Admission HPI Per Admitting Provider 63-year-old male with past med history significant for hypertension who was recently in the hospital for left ureteral stone and was diagnosed with COVID and was discharged to follow as outpatient comes back with severe left flank pain. Patient says since discharge he is in a lot of pain. Currently seems to be in extreme pain. Complains of shortness of breath and nausea with pain. Afebrile. No cough no headache no chest pain. He states he has some blood in the urine. No pain while micturating. Somewhat constipated. Past medical history. As mentioned above Past surgical history. Colonoscopy. Removal of hydrocele. Repair of nasal septum. Social history. No smoking. No alcohol. No drugs. Family history. Father had breast cancer. Brother had lung cancer. Mother had Alzheimer's disease. Admission Exam Per Admitting Provider Physical Exam: General- seems in severe pain Head- atraumatic Eyes- PERRL. Lungs- clear to auscultation no wheezing or crackles. Heart- regular rhythm; no murmur, no gallop. Abdomen- soft non distended. Extremities- no pretibial edema, moves extremities. Neuro- alert, oriented no facial palsy; no dysarthria; moves extremities. Skin- warm & dry Principal Diagnosis Left ureteric stone with renal colic, status post stent placement, hypertension Discharge Exam Lying in bed without any acute distress Constitutional well developed, well nourished and + ill appearing Eyes PERRL, conjunctivae normal, anicteric sclerae ENMT external ear and nose normal, oropharynx normal Neck trachea midline, no thyromegaly Respiratory no respiratory distress Auscultation: lungs clear to auscultation bilaterally Cardiovascular Rate/Rhythm: regular rate and regular rhythm; not tachycardic Heart Sounds: normal S1 and normal S2; no murmur Extremities: no edema Gastrointestinal (Abdomen) Inspection/Auscultation: normal bowel sounds; abdomen not distended Percussion/Palpation: abdomen soft; abdomen nontender Neurologic normal touch/pain/proprioception and moves all extremities; no focal motor deficits Lymphatic no cervical or axillary lymphadenopathy Discharge Data Allergies Allergy/AdvReac Type Severity Reaction Status Date / Time No Known Allergies Allergy Verified 04/08/23 19:58 Consultations 04/08/23 19:23 ED Decision to Admit Stat 04/09/23 08:00 Consult Urology Routine Procedures Performed Operation Date: 04/09/23 12:15 Actual Procedures p Cystoscopy, Left Retrograde Pyelogram, Left ureteral Stent insertion(Left) - Luis Fernando Fisher MD Ordered Studies 04/09/23 14:17 FL retrograde includes kub Routine Hospital Course (1) Renal colic on left side: 63-year-old male with past med significant for hypertension who was recently in the hospital for left ureteral stone and was diagnosed with COVID and was discharged to follow as outpatient comes back with severe left flank pain. Patient says since discharge he is in a lot of pain. Currently seems to be in extreme pain. Complains of shortness of breath and nausea with pain. Afebrile. No cough no headache no chest pain. He states he has some blood in the urine. No pain while micturating. Somewhat constipated. Renal colic on left side 8 mm obstructing calculus in the left proximal ureter with mild left hydroureteronephrosis on the CAT scan done in Apr 03 Pain has been worse since discharge from the hospital Has not been able to eat or drink anything at home for the last few days Bowel is not moved for the last few days without any abdominal distention Has been n.p.o. n.p.o. IV fluids,IV Dilaudid and Toradol as needed Continue Flomax Appreciate urology input and recommendation for stent placement in the afternoon Denies any more abdominal pain and was seen by the urologist who recommended that he can go home Denies any fever and or chills, any nausea or vomiting and his bowel movement Hypertension On amlodipine If the blood pressure remains high will give hydralazine as needed Blood pressure noted to be little high at 170/77 Got his amlodipine and will not put any medications now Was advised to check blood pressure 2 times a week and if it is elevated he will need to call his PCP and may need further medication to control the blood pressure COVID COVID precautions DVT prophylaxis SCDs Disposition medical floor Discussed with the patient in detail Is a status post cystoscopy, left retrograde pyelogram and left ureteral stent insertion on 04/09/2023 The patient was seen and examined following the procedure Remains stable-likely discharge tomorrow morning Discussed with the in detailed Total Time Total Time Spent Total Time Spent (In Minutes): 35 minutes Discharge Plan Discharge Items Patient Disposition: Home - Self-Care Reason For Visit: LEFT RENAL COLIC Discharge Diagnosis: Left ureteric stone with renal colic, status post stent placement, hypertension Condition on Discharge: Good Activity: Resume your previous activity Non-emergency contact: Primary Care Provider Call non-emergency contact if: you have any medication questions and your symptoms worsen Follow-up/Referrals: Broderick Kwok MD [Primary Care Provider] - (Date & Time 04/16/2023 11:00 AM Provider Broderick Kwok MD [facility] ) Luis Fernando Fisher MD [Physician] - (The Urology office will contact you for an appointment.) Diet: Regular and Low Sodium (2gm) Addtl Attending Provider Instructions: Please take your medications as advised Try to drink more fluid Check your blood pressure 2 times a week and keep a record of that You may need to have additional blood pressure medications from your PCP if the blood pressure remains high Please keep appointments with your healthcare provider Pending Studies at Discharge: No Stand-Alone Forms: My [employer], Smoking Cessation Medications and DC Order Prescriptions: Continued phenazopyridine [Pyridium] 200 mg Tablet 200 mg PO TID PRN (Reason: pain) Qty: 30 0RF Rx Instructions: Dysuria amlodipine [Norvasc] 5 mg Tablet 5 mg PO QAM Qty: 30 0RF tamsulosin 0.4 mg Capsule 0.4 mg PO QAM Qty: 30 0RF oxycodone 5 mg Tablet 5 mg PO Q4H PRN (Reason: pain) Qty: 10 0RF Discharge Orders: Discharge Order (Routine); Ordered 04/10/23 Ordered By: Vanessa Yates Admission Data Admit Date/Time: 04/08/23 21:08 Attending Provider: Vanessa Yates Admit Provider: Norberto Strong Primary Care Provider: Broderick Kwok Other Providers: Norberto Strong; Jonas Gaytan; Kelvin Godoy; Doug Dawson; Kate Kennedy; Ryan Argueta; Desiree Monroe; Imani Pabon; Melvin Mills; Eva Farley; Leno Menjivar; Luis Fernando Fisher Other Interventions: Discharge Summary Assessment (RN) Last Done: 04/10/23 11:02
== END 2023-04-10 12:35 | disposition home or self-care (01) | DRG 659 ==
LOC: ED 18:29 → EDINP 21:08 → 3E 22:06
DX: N13.2 Hydronephrosis with renal and ureteral calculous obstruction; I10 Essential (primary) hypertension; Z88.5 Allergy status to narcotic agent; U07.1 COVID-19